=== PATIENT | female | born 1985 | race Caucasian/White ===

== ENCOUNTER 2022-10-23 16:32 | Emergency (ER) | payer OTHER ==
[~2022-10-23] VITALS: Ht 165.1 cm; Wt 74.3 kg
[2022-10-23] MEDS ORDERED: NS 1,000 ML IV ONE (18:25)
[2022-10-23] MEDS ORDERED: ONDANSETRON 4MG 2ML VIAL IV ONE (18:25)
[2022-10-23] MEDS: HYDROMORPHONE HCL 0.5 MG/ 0.5 ML SYRINGE IV PRN ×2 (19:08→20:24)
[2022-10-23 19:22] LABS: BASO % 0.4 % (0.0-1.0); EOS # 0.1 10^3/uL (0.0-0.5); EOS % 1.4 % (0.0-3.0); HEMATOCRIT 34.7 % (36.0-47.0); HEMOGLOBIN 10.7 g/dl (12.0-15.5); LYMPH # 2.1 10^3/uL (1.5-5.0); LYMPH % 20.6 % (24.0-44.0); MEAN CORPUSCULAR HEMOGLOBIN 27.4 pg (27.0-33.0); MEAN CORPUSCULAR HGB CONC 30.8 g/dl (32.0-36.5); MEAN CORPUSCULAR VOLUME 88.7 fl (80.0-96.0); MONO # 0.7 10^3/uL (0.0-0.8); MONO % 7.1 % (2.0-8.0); NEUTROPHILS % 70.2 % (36.0-66.0); PLATELET COUNT, AUTOMATED 356 10^3/uL (150-450); RED BLOOD COUNT 3.91 10^6/uL (4.00-5.40)
[2022-10-23] MEDS ORDERED: ISOVUE-370 76% 100ML VIAL As Ordered ONE (19:25)
[2022-10-23 19:34] LABS: INR 1.06; PARTIAL THROMBOPLASTIN TIME 28.2 SECONDS (24.8-34.2)
[2022-10-23 19:39] LABS: LIPASE 27 U/L (12-53)
[2022-10-23 19:41] LABS: ALBUMIN 3.1 G/DL (3.2-5.2); ALKALINE PHOSPHATASE 68 U/L (46-116); ALT/SGPT < 9 U/L (7.0-40); AST/SGOT 18 U/L (<34); BILIRUBIN,DIRECT < 0.1 MG/DL (<0.4); BILIRUBIN,TOTAL 0.4 MG/DL (0.3-1.2); TOTAL PROTEIN 8.2 G/DL (5.7-8.2)
[2022-10-23] MEDS ORDERED: HYDROMORPHONE HCL 0.5 MG/ 0.5 ML SYRINGE IV ONE (21:45)
[2022-10-23] MEDS ORDERED: KETOROLAC 30 MG/ML 1ML VIAL IV ONE (23:45)
[2022-10-24 00:25] LABS: RSV AMPLIFICATION NEGATIVE (NEGATIVE)
[2022-10-24 00:43] VITALS: BP 125/66
== END 2022-10-24 00:44 | disposition short-term general hospital (02) ==
LOC: M ED 16:32
DX: I88.0 Nonspecific mesenteric lymphadenitis (principal); M54.50 Low back pain, unspecified; F17.200 Nicotine dependence, unspecified, uncomplicated; Z88.1 Allergy status to other antibiotic agents
CPT/HCPCS: 36415; 74177; 80047; 80076; 81001; 83605; 83690; 84702; 85025; 85610; 85730; 87086; 87631; 93041; 96361; 96374; 96375; 99284; J1170; J1885; J2405; Q9967

== ENCOUNTER 2022-11-06 17:23 | Emergency (ER) | payer OTHER ==
[~2022-11-06] VITALS: Ht 162.6 cm; Wt 74.5 kg
[2022-11-06 17:24] VITALS: BP 170/79
[2022-11-06] MEDS ORDERED: ONDA4TAB6 (17:31)
[2022-11-06] MEDS ORDERED: HYDR2TAB2 (17:31)
[2022-11-06] MEDS ORDERED: LORA1TAB23 (17:31)
[2022-11-06] MEDS ORDERED: CELE1CAP7 (17:31)
== END 2022-11-06 20:32 | disposition left against medical advice (07) ==
LOC: M ED 17:23
DX: Z53.21 Procedure and treatment not carried out due to patient leaving prior to being seen by health care provider (principal)

== ENCOUNTER 2022-11-14 19:23 | Observation (INO) | payer OTHER ==
[~2022-11-14] VITALS: Ht 162.6 cm; Wt 72.1 kg
[~2022-11-14 19:23] MED LIST: CELE1CAP7; HYDR2TAB2; LORA1TAB23; ONDA4TAB6
[2022-11-14] MEDS ORDERED: NALO4SPR (20:11)
[2022-11-14] MEDS ORDERED: NS 1,000 ML IV ONE (21:40)
[2022-11-14] MEDS ORDERED: LORazepam 2 MG/ML 1ML VIAL IV STA (21:40)
[2022-11-14] MEDS ORDERED: ISOVUE-370 76% 100ML VIAL As Ordered ONE (21:54)
[2022-11-14] MEDS: HYDROMORPHONE HCL 0.5 MG/ 0.5 ML SYRINGE IV PRN ×2 (22:28→23:34)
[2022-11-14 22:33] LABS: BASO % 0.3 % (0.0-1.0); EOS # 0.1 10^3/uL (0.0-0.5); HEMATOCRIT 31.3 % (36.0-47.0); HEMOGLOBIN 9.6 g/dl (12.0-15.5); LYMPH # 2.1 10^3/uL (1.5-5.0); LYMPH % 17.4 % (24.0-44.0); MEAN CORPUSCULAR HEMOGLOBIN 27.2 pg (27.0-33.0); MEAN CORPUSCULAR HGB CONC 30.7 g/dl (32.0-36.5); MEAN CORPUSCULAR VOLUME 88.7 fl (80.0-96.0); MONO # 0.8 10^3/uL (0.0-0.8); MONO % 6.5 % (2.0-8.0); NEUTROPHILS # 9.1 10^3/uL (1.5-8.5); NEUTROPHILS % 74.3 % (36.0-66.0); PLATELET COUNT, AUTOMATED 362 10^3/uL (150-450); RED BLOOD COUNT 3.53 10^6/uL (4.00-5.40); WHITE BLOOD COUNT 12.2 10^3/uL (4.0-10.0)
[2022-11-14 22:45] LABS: INR 1.02; PROTHROMBIN TIME 13.6 SECONDS (12.5-14.5)
[2022-11-14 22:46] LABS: PARTIAL THROMBOPLASTIN TIME 30.9 SECONDS (24.8-34.2)
[2022-11-14 22:57] LABS: LIPASE 23 U/L (12-53)
[2022-11-14 23:00] LABS: ALBUMIN 2.8 G/DL (3.2-5.2); ALKALINE PHOSPHATASE 70 U/L (46-116); ALT/SGPT < 9 U/L (7.0-40); AST/SGOT 14 U/L (<34); BILIRUBIN,DIRECT < 0.1 MG/DL (<0.4); BILIRUBIN,TOTAL 0.3 MG/DL (0.3-1.2); BLOOD UREA NITROGEN 16 MG/DL (9-23); CALCIUM LEVEL 8.9 MG/DL (8.5-10.1); CARBON DIOXIDE LEVEL 24 MMOL/L (20-31); CHLORIDE LEVEL 106 MMOL/L (98-107); CREATININE FOR GFR 0.66 MG/DL (0.55-1.30); GLOMERULAR FILTRATION RATE > 60.0 (>60); GLUCOSE, FASTING 102 MG/DL (60-100); POTASSIUM SERUM 4.1 MMOL/L (3.5-5.1); SODIUM LEVEL 141 MMOL/L (136-145); TOTAL PROTEIN 7.4 G/DL (5.7-8.2)
[2022-11-14] MEDS ORDERED: NICOTINE 21MG/24HR 1 EA TRANSDERMAL TD ONE (23:05)
[2022-11-15] MEDS ORDERED: ONDANSETRON 4MG 2ML VIAL IV ONE (01:50)
[2022-11-15] MEDS ORDERED: HYDROMORPHONE HCL 0.5 MG/ 0.5 ML SYRINGE IV ONE ×2 (02:05→21:55)
[2022-11-15] MEDS ORDERED: ACETAMINOPHEN TAB 650MG DOSE (2X325MG) PO PRN (02:35)
[2022-11-15] MEDS ORDERED: HYDROMORPHONE HCL 0.5 MG/ 0.5 ML SYRINGE IV PRN ×3 (02:50→08:10)
[2022-11-15] MEDS ORDERED: NALOXONE INJ 0.4MG/1ML VIAL IV PRN (02:55)
[2022-11-15] MEDS ORDERED: CELE100C PO (03:53)
[2022-11-15] MEDS ORDERED: ONDA4TAB6 PO (03:53)
[2022-11-15] MEDS ORDERED: ATIV1TAB7 PO (03:53)
[2022-11-15] MEDS ORDERED: DILA2TAB6 PO (03:53)
[2022-11-15] MEDS ORDERED: HOME MED LIST COMPLETE! XX SCH (03:55)
[2022-11-15] MEDS: ONDANSETRON 4MG 2ML VIAL IV PRN ×3 (07:50→22:17)
[2022-11-15 08:00] VITALS: BP 158/89
[2022-11-15] MEDS ORDERED: LORazepam 2 MG/ML 1ML VIAL IM STA (08:10)
[2022-11-15] MEDS: DOCUSATE SODIUM 100MG CAPSULE PO SCH ×2 (09:42→19:44)
[2022-11-15] MEDS: ENOXAPARIN 40MG/0.4ML SYRINGE (J1650 PER 10MG) SC SCH (09:42)
[2022-11-15 12:00] VITALS: BP 127/69
[2022-11-15] MEDS ORDERED: PROHANCE 279.3MG/ML 15ML VIAL As Ordered ONE (13:56)
[2022-11-15] MEDS: CYCLOBENZAPRINE 5MG TABLET PO SCH ×2 (15:36→22:18)
[2022-11-15] MEDS: HYDROMORPHONE HCL 0.5 MG/ 0.5 ML SYRINGE IV PRN ×2 (15:36→19:46)
[2022-11-15 17:16] VITALS: BP 122/76
[2022-11-15 18:00] VITALS: BP 105/64
[2022-11-15] MEDS: CelecoXIB (CeleBREX) 100 MG CAP PO SCH (19:44)
[2022-11-15 21:09] VITALS: BP 136/79
[2022-11-15] MEDS ORDERED: LIDOCAINE 5% (LIDODERM) PATCH TD SCH (21:55)
[2022-11-15] MEDS: oxyCODONE 5MG TAB PO PRN (22:19)
[2022-11-16 02:00] VITALS: BP 127/77
[2022-11-16] MEDS: HYDROMORPHONE HCL 0.5 MG/ 0.5 ML SYRINGE IV PRN ×3 (04:15→12:40)
[2022-11-16] MEDS: ONDANSETRON 4MG 2ML VIAL IV PRN ×2 (04:26→10:33)
[2022-11-16] MEDS: oxyCODONE 5MG TAB PO PRN ×2 (05:51→10:16)
[2022-11-16] MEDS: CYCLOBENZAPRINE 5MG TABLET PO SCH (05:51)
[2022-11-16 06:00] VITALS: BP 121/80
[2022-11-16 06:06] LABS: HEMATOCRIT 29.3 % (36.0-47.0); HEMOGLOBIN 8.6 g/dl (12.0-15.5); MEAN CORPUSCULAR HEMOGLOBIN 26.8 pg (27.0-33.0); MEAN CORPUSCULAR HGB CONC 29.4 g/dl (32.0-36.5); MEAN CORPUSCULAR VOLUME 91.3 fl (80.0-96.0); PLATELET COUNT, AUTOMATED 300 10^3/uL (150-450); RED BLOOD COUNT 3.21 10^6/uL (4.00-5.40); WHITE BLOOD COUNT 8.4 10^3/uL (4.0-10.0)
[2022-11-16 06:22] LABS: BLOOD UREA NITROGEN 12 MG/DL (9-23); CALCIUM LEVEL 8.6 MG/DL (8.5-10.1); CARBON DIOXIDE LEVEL 26 MMOL/L (20-31); CHLORIDE LEVEL 104 MMOL/L (98-107); CREATININE FOR GFR 0.66 MG/DL (0.55-1.30); GLOMERULAR FILTRATION RATE > 60.0 (>60); GLUCOSE, FASTING 87 MG/DL (60-100); POTASSIUM SERUM 4.1 MMOL/L (3.5-5.1); SODIUM LEVEL 138 MMOL/L (136-145)
[2022-11-16] MEDS: DOCUSATE SODIUM 100MG CAPSULE PO SCH (08:42)
[2022-11-16] MEDS: CelecoXIB (CeleBREX) 100 MG CAP PO SCH (08:42)
[2022-11-16] MEDS: ENOXAPARIN 40MG/0.4ML SYRINGE (J1650 PER 10MG) SC SCH (08:44)
[2022-11-16] MEDS ORDERED: DILA4TAB13 PO (09:53)
[2022-11-16] MEDS ORDERED: NARC1SPR NARES (09:53)
[2022-11-16] MEDS ORDERED: LIDO5TD TD (10:23)
[2022-11-19] MEDS ORDERED: ACET-897 PO (09:18)
[2022-11-19] MEDS ORDERED: FENT12DI8 TOP (10:48)
[2022-11-19] MEDS ORDERED: DEXA2TA PO (10:48)
[2022-11-19] MEDS ORDERED: SENN-186 PO (10:48)
[2022-11-19] MEDS ORDERED: DILA4TAB13 PO (10:48)
== END 2022-11-16 13:49 | disposition home or self-care (01) ==
LOC: M ED 19:23 → M ED INP 11-15 02:32 → INTOOBSV 11-15 02:32 → ENRESERV 11-15 14:26 → M MSPAV 11-15 17:12
PROVIDERS: ADMIT Internal Medicine; ATTEND Internal Medicine
DX: G89.3 Neoplasm related pain (acute) (chronic) (principal); C82.90 Follicular lymphoma, unspecified, unspecified site; M54.50 Low back pain, unspecified; R11.2 Nausea with vomiting, unspecified; F41.9 Anxiety disorder, unspecified; Z79.899 Other long term (current) drug therapy; Z88.1 Allergy status to other antibiotic agents; Z88.8 Allergy status to other drugs, medicaments and biological substances
CPT/HCPCS: 36415; 71260; 72158; 74177; 80047; 80048; 80076; 83605; 83690; 84702; 85025; 85027; 85610; 85730; 87040; 87635; 96372; 96374; 96375; 96376; 99284; A9576; J1170; J1650; J2060; J2405; Q9967

== ENCOUNTER → 2022-11-19 | Outpatient (CLI) | payer OTHER ==
[~2022-11-19] VITALS: Ht 162.6 cm; Wt 73.8 kg
[~2022-11-19] MED LIST changes: +ACET-897 PO; +ATIV1TAB7 PO; +CELE100C PO; +CIPR-249 PO; +DEXA2TA PO; +DILA2TAB6 PO; +DILA4TAB13 PO; +FENT12DI8 TOP; +LIDO1PAD TOP; +LIDO5TD TD; +METO1TAB7 PO; +METR-265 PO; +MORP30TASA PO; +NALO4SPR; +NARC1SPR NARES; +ONDA4TAB6 PO; +RISATAB3 PO; +SENN-186 PO
[2022-11-19 09:11] VITALS: BP 122/87
== END ==
LOC: M PAL 08:54
PROVIDERS: ATTEND Nurse Practitioner Adult Health
DX: C82.90 Follicular lymphoma, unspecified, unspecified site (principal); Z51.5 Encounter for palliative care; G89.3 Neoplasm related pain (acute) (chronic); K59.00 Constipation, unspecified; R53.83 Other fatigue; Z98.51 Tubal ligation status; Z80.0 Family history of malignant neoplasm of digestive organs; Z88.6 Allergy status to analgesic agent; Z79.899 Other long term (current) drug therapy

== ENCOUNTER → 2022-11-25 | Outpatient (CLI) | payer OTHER ==
[~2022-11-25] MED LIST changes: -CIPR-249 PO; -METO1TAB7 PO; -METR-265 PO; -MORP30TASA PO; -RISATAB3 PO
== END ==
LOC: M PLARAD 12:05
PROVIDERS: ATTEND Internal Medicine Hematology & Oncology
DX: C82.95 Follicular lymphoma, unspecified, lymph nodes of inguinal region and lower limb (principal)
CPT/HCPCS: 78815; A9552

== ENCOUNTER 2022-11-27 03:12 | Inpatient (IN) | payer OTHER ==
[~2022-11-27] VITALS: Ht 162.6 cm; Wt 74.1 kg
[~2022-11-27 03:12] MED LIST changes: -LIDO1PAD TOP
[2022-11-27] MEDS ORDERED: NS 1,000 ML IV ONE (04:35)
[2022-11-27] MEDS ORDERED: ONDANSETRON 4MG 2ML VIAL IV ONE (04:35)
[2022-11-27] MEDS ORDERED: HYDROMORPHONE HCL 0.5 MG/ 0.5 ML SYRINGE IV ONE (04:45)
[2022-11-27 04:50] LABS: BASO % 0.2 % (0.0-1.0); EOS # 0.1 10^3/uL (0.0-0.5); EOS % 0.3 % (0.0-3.0); HEMATOCRIT 34.8 % (36.0-47.0); HEMOGLOBIN 10.7 g/dl (12.0-15.5); LYMPH # 3.5 10^3/uL (1.5-5.0); LYMPH % 19.2 % (24.0-44.0); MEAN CORPUSCULAR HEMOGLOBIN 27.3 pg (27.0-33.0); MEAN CORPUSCULAR HGB CONC 30.7 g/dl (32.0-36.5); MEAN CORPUSCULAR VOLUME 88.8 fl (80.0-96.0); MONO # 0.9 10^3/uL (0.0-0.8); MONO % 4.9 % (2.0-8.0); NEUTROPHILS # 13.4 10^3/uL (1.5-8.5); NEUTROPHILS % 74.8 % (36.0-66.0); RED BLOOD COUNT 3.92 10^6/uL (4.00-5.40)
[2022-11-27 04:57] LABS: LIPASE 30 U/L (12-53)
[2022-11-27 04:59] LABS: ALBUMIN 3.6 G/DL (3.2-5.2); ALKALINE PHOSPHATASE 66 U/L (46-116); ALT/SGPT < 9 U/L (7.0-40); AST/SGOT 12 U/L (<34); BILIRUBIN,DIRECT < 0.1 MG/DL (<0.4); BILIRUBIN,TOTAL 0.3 MG/DL (0.3-1.2); BLOOD UREA NITROGEN 17 MG/DL (9-23); CALCIUM LEVEL 9.2 MG/DL (8.5-10.1); CARBON DIOXIDE LEVEL 26 MMOL/L (20-31); CHLORIDE LEVEL 101 MMOL/L (98-107); GLOMERULAR FILTRATION RATE > 60.0 (>60); GLUCOSE, FASTING 104 MG/DL (60-100); POTASSIUM SERUM 4.2 MMOL/L (3.5-5.1); SODIUM LEVEL 137 MMOL/L (136-145); TOTAL PROTEIN 7.9 G/DL (5.7-8.2)
[2022-11-27] MEDS ORDERED: ISOVUE-370 76% 100ML VIAL As Ordered ONE (05:12)
[2022-11-27 05:25] LABS: RSV AMPLIFICATION NEGATIVE (NEGATIVE)
[2022-11-27] MEDS ORDERED: HYDROMORPHONE HCL 0.5 MG/ 0.5 ML SYRINGE IV PRN (08:00)
[2022-11-27] MEDS ORDERED: PROMETHAZINE 25MG/ML 1ML VIAL IV ONE ×2 (08:20→14:10)
[2022-11-27] MEDS ORDERED: MOM 30ML SUSPENSION UDC PO PRN (08:50)
[2022-11-27] MEDS ORDERED: ANEXSIA, NORCO 7.5MG/325MG TABLET(HYDROCODONE/APAP) PO PRN ×2 (08:50)
[2022-11-27] MEDS ORDERED: MIRALAX *UNIT DOSE* 17GM PACKET PO PRN (08:50)
[2022-11-27] MEDS ORDERED: LIDO1PAD TOP (09:16)
[2022-11-27] MEDS ORDERED: HOME MED LIST COMPLETE! XX SCH (09:25)
[2022-11-27] MEDS: PANTOPRAZOLE 40MG TAB (PROTONIX) PO SCH ×2 (09:29→20:41)
[2022-11-27] MEDS: SENOKOT S TAB PO SCH ×2 (09:31→20:41)
[2022-11-27] MEDS: LACTOBACILLUS ACIDOPHILUS CAP (BACID) PO SCH ×2 (09:31→18:22)
[2022-11-27] MEDS ORDERED: diphenhydrAMINE 50MG/ML VIAL IV PRN (10:30)
[2022-11-27] MEDS ORDERED: NALOXONE INJ 0.4MG/1ML VIAL IV PRN (10:30)
[2022-11-27] MEDS ORDERED: NS 1,000 ML IV SCH (10:30)
[2022-11-27] MEDS ORDERED: EPIDURAL/PCA KEYS XX PRN (10:30)
[2022-11-27] MEDS ORDERED: MORPHINE 10 MG/ML 1ML VIAL IV ONE (10:30)
[2022-11-27 10:40] LABS: ERYTHROCYTE SEDIMENTATION RATE 84 mm/hr (0-20)
[2022-11-27 10:42] VITALS: BP 155/99
[2022-11-27] MEDS: CIPROFLOXACIN 400 MG in IV 1 EA IV SCH ×2 (11:08→22:32)
[2022-11-27] MEDS: SUCRALFATE SUSP 1GM/10ML UD PO SCH ×3 (11:35→20:41)
[2022-11-27] MEDS: ONDANSETRON 4MG 2ML VIAL IV PRN ×2 (11:37→20:36)
[2022-11-27] MEDS ORDERED: MORPHINE 1MG/ML IN 0.9% NACL 100ML IV BAG IV PRN (12:00)
[2022-11-27] MEDS: metroNIDAZOLE 500 MG in IV 1 EA IV SCH ×2 (12:29→18:22)
[2022-11-27] MEDS ORDERED: PROMETHAZINE 25MG/ML 1ML VIAL IV PRN (14:10)
[2022-11-27] MEDS: METOPROLOL TART 25 MG TABLET PO SCH ×2 (14:49→18:22)
[2022-11-27] MEDS ORDERED: cloNIDine 0.1MG TABLET PO PRN (15:55)
[2022-11-27 16:00] VITALS: BP 141/77
[2022-11-27] MEDS ORDERED: FENTANYL REMOVAL DOCUMENTATION MISC XX SCH (16:05)
[2022-11-27 19:59] VITALS: BP 128/68
[2022-11-28 00:34] VITALS: BP 128/80
[2022-11-28] MEDS: metroNIDAZOLE 500 MG in IV 1 EA IV SCH ×2 (02:47→11:37)
[2022-11-28] MEDS: ONDANSETRON 4MG 2ML VIAL IV PRN ×3 (02:53→20:50)
[2022-11-28 05:32] VITALS: BP 140/79
[2022-11-28] MEDS: METOPROLOL TART 25 MG TABLET PO SCH ×4 (06:24→17:58)
[2022-11-28 06:52] LABS: HEMATOCRIT 32.8 % (36.0-47.0); HEMOGLOBIN 9.9 g/dl (12.0-15.5); MEAN CORPUSCULAR HEMOGLOBIN 27.3 pg (27.0-33.0); MEAN CORPUSCULAR HGB CONC 30.2 g/dl (32.0-36.5); MEAN CORPUSCULAR VOLUME 90.4 fl (80.0-96.0); PLATELET COUNT, AUTOMATED 363 10^3/uL (150-450); RED BLOOD COUNT 3.63 10^6/uL (4.00-5.40); WHITE BLOOD COUNT 18.4 10^3/uL (4.0-10.0)
[2022-11-28 07:14] LABS: BLOOD UREA NITROGEN 14 MG/DL (9-23); CALCIUM LEVEL 8.7 MG/DL (8.5-10.1); CARBON DIOXIDE LEVEL 26 MMOL/L (20-31); CHLORIDE LEVEL 99 MMOL/L (98-107); CREATININE FOR GFR 0.52 MG/DL (0.55-1.30); GLOMERULAR FILTRATION RATE > 60.0 (>60); GLUCOSE, FASTING 104 MG/DL (60-100); POTASSIUM SERUM 4.1 MMOL/L (3.5-5.1); SODIUM LEVEL 133 MMOL/L (136-145)
[2022-11-28] MEDS ORDERED: MORPHINE 2 MG/ML 1ML VIAL IV PRN (07:25)
[2022-11-28] MEDS ORDERED: PILL CUTTER 1 EACH XX PRN (07:45)
[2022-11-28] MEDS: SUCRALFATE SUSP 1GM/10ML UD PO SCH ×5 (08:59→20:42)
[2022-11-28] MEDS: LACTOBACILLUS ACIDOPHILUS CAP (BACID) PO SCH ×2 (09:00→17:56)
[2022-11-28] MEDS ORDERED: SCOPOLAMINE 1MG TRANSDERMAL PATCH TOP SCH (09:00)
[2022-11-28] MEDS: MIRALAX *UNIT DOSE* 17GM PACKET PO SCH ×2 (09:00→20:42)
[2022-11-28] MEDS: PANTOPRAZOLE 40MG TAB (PROTONIX) PO SCH ×2 (09:01→20:43)
[2022-11-28] MEDS: SENOKOT S TAB PO SCH ×2 (09:01→20:42)
[2022-11-28] MEDS: MORPHINE 15 MG SA TAB PO SCH ×2 (09:01→20:43)
[2022-11-28] MEDS: CIPROFLOXACIN 400 MG in IV 1 EA IV SCH (10:23)
[2022-11-28 14:00] VITALS: BP 129/89
[2022-11-28] MEDS: MORPHINE 30 MG TAB **MSIR PO PRN (16:04)
[2022-11-28] MEDS: CIPROFLOXACIN 500MG TABLET PO SCH (17:56)
[2022-11-28] MEDS: metroNIDAZOLE (FLAGYL) 500MG TABLET PO SCH (20:51)
[2022-11-29] MEDS: metroNIDAZOLE (FLAGYL) 500MG TABLET PO SCH ×2 (05:46→14:17)
[2022-11-29] MEDS: CIPROFLOXACIN 500MG TABLET PO SCH ×2 (05:46→17:10)
[2022-11-29] MEDS: ONDANSETRON 4MG 2ML VIAL IV PRN (05:46)
[2022-11-29] MEDS: METOPROLOL TART 25 MG TABLET PO SCH ×2 (06:00)
[2022-11-29 06:03] VITALS: BP 139/79
[2022-11-29 06:16] LABS: HEMATOCRIT 34.3 % (36.0-47.0); HEMOGLOBIN 10.5 g/dl (12.0-15.5); MEAN CORPUSCULAR HEMOGLOBIN 27.6 pg (27.0-33.0); MEAN CORPUSCULAR HGB CONC 30.6 g/dl (32.0-36.5); PLATELET COUNT, AUTOMATED 359 10^3/uL (150-450); RED BLOOD COUNT 3.81 10^6/uL (4.00-5.40); WHITE BLOOD COUNT 16.4 10^3/uL (4.0-10.0)
[2022-11-29] MEDS: MORPHINE 30 MG TAB **MSIR PO PRN (06:29)
[2022-11-29 06:40] LABS: BLOOD UREA NITROGEN 12 MG/DL (9-23); CALCIUM LEVEL 8.6 MG/DL (8.5-10.1); CARBON DIOXIDE LEVEL 26 MMOL/L (20-31); CHLORIDE LEVEL 97 MMOL/L (98-107); CREATININE FOR GFR 0.61 MG/DL (0.55-1.30); GLOMERULAR FILTRATION RATE > 60.0 (>60); GLUCOSE, FASTING 105 MG/DL (60-100); POTASSIUM SERUM 4.2 MMOL/L (3.5-5.1); SODIUM LEVEL 134 MMOL/L (136-145)
[2022-11-29] MEDS ORDERED: MORPHINE 10 MG/ML 1ML VIAL IV ONE (07:10)
[2022-11-29] MEDS: SUCRALFATE SUSP 1GM/10ML UD PO SCH ×3 (07:30→16:36)
[2022-11-29] MEDS ORDERED: ACETAMINOPHEN 1000MG 100ML IV BAG IV ONE (07:35)
[2022-11-29] MEDS ORDERED: PROMETHAZINE 25MG/ML 1ML VIAL IV ONE (07:35)
[2022-11-29 09:00] VITALS: BP 106/58
[2022-11-29] MEDS ORDERED: METOPROLOL SUCC (TopROL XL) 50MG **XL** TAB PO SCH (09:00)
[2022-11-29] MEDS ORDERED: MORPHINE 30 MG SA TAB PO SCH (09:00)
[2022-11-29] MEDS: SENOKOT S TAB PO SCH (10:04)
[2022-11-29] MEDS: MIRALAX *UNIT DOSE* 17GM PACKET PO SCH (10:04)
[2022-11-29] MEDS: PANTOPRAZOLE 40MG TAB (PROTONIX) PO SCH (10:05)
[2022-11-29] MEDS: LACTOBACILLUS ACIDOPHILUS CAP (BACID) PO SCH ×2 (10:06→17:10)
[2022-11-29 14:00] VITALS: BP 134/96
[2022-11-29] MEDS ORDERED: MORPHINE 30 MG TAB **MSIR PO ONE (15:45)
[2022-11-29] MEDS ORDERED: METR-265 PO (15:48)
[2022-11-29] MEDS ORDERED: MORP30TASA PO (15:48)
[2022-11-29] MEDS ORDERED: RISATAB3 PO (15:48)
[2022-11-29] MEDS ORDERED: METO1TAB7 PO (15:48)
[2022-11-29] MEDS ORDERED: CIPR-249 PO (15:48)
[2022-11-29] MEDS ORDERED: PERCOCET 5MG/325MG TAB PO ONE (19:55)
== END 2022-11-29 20:20 | disposition short-term general hospital (02) | DRG 861 ==
LOC: EDBD 03:12 → M ED 03:12 → M ED INP 05:47 → ENRESERV 09:00 → M MS5PR 10:30
PROVIDERS: ADMIT General Practice; ATTEND General Practice
DX: G89.3 Neoplasm related pain (acute) (chronic) (principal); K85.90 Acute pancreatitis without necrosis or infection, unspecified; C78.89 Secondary malignant neoplasm of other digestive organs; C79.51 Secondary malignant neoplasm of bone; C82.90 Follicular lymphoma, unspecified, unspecified site; I10 Essential (primary) hypertension; I16.0 Hypertensive urgency; K52.9 Noninfective gastroenteritis and colitis, unspecified; M54.9 Dorsalgia, unspecified; R10.9 Unspecified abdominal pain; Z79.891 Long term (current) use of opiate analgesic; Z88.8 Allergy status to other drugs, medicaments and biological substances; Z79.899 Other long term (current) drug therapy; N83.201 Unspecified ovarian cyst, right side

== ENCOUNTER → 2022-12-05 | Outpatient (CLI) | payer OTHER ==
[~2022-12-05] MED LIST changes: +CIPR-249 PO; +LIDO1PAD TOP; +METO1TAB7 PO; +METR-265 PO; +MORP30TASA PO; +RISATAB3 PO
== END ==
LOC: M ONCR 09:12
PROVIDERS: ATTEND General Practice
DX: C82.03 Follicular lymphoma grade I, intra-abdominal lymph nodes (principal); Z71.2 Person consulting for explanation of examination or test findings; Z79.891 Long term (current) use of opiate analgesic; Z79.899 Other long term (current) drug therapy; Z80.0 Family history of malignant neoplasm of digestive organs; Z80.6 Family history of leukemia; Z82.69 Family history of other diseases of the musculoskeletal system and connective tissue; Z88.1 Allergy status to other antibiotic agents; Z92.21 Personal history of antineoplastic chemotherapy; Z98.51 Tubal ligation status

== ENCOUNTER → 2022-12-10 | Outpatient (CLI) | payer OTHER ==
[~2022-12-10] VITALS: Ht 162.6 cm; Wt 70.6 kg
[~2022-12-10] MED LIST changes: +ATIV1TAB10 PO; +ELIQ5TAB PO; +MIRA3350 PO
[2022-12-10 09:51] VITALS: BP 123/80; TEMP 96.6; O2SAT 100
== END ==
LOC: M PAL 09:01
PROVIDERS: ATTEND Nurse Practitioner Adult Health
DX: C82.90 Follicular lymphoma, unspecified, unspecified site (principal); Z51.5 Encounter for palliative care; Z92.21 Personal history of antineoplastic chemotherapy; G89.3 Neoplasm related pain (acute) (chronic); I82.A11 Acute embolism and thrombosis of right axillary vein; I82.611 Acute embolism and thrombosis of superficial veins of right upper extremity; I82.B11 Acute embolism and thrombosis of right subclavian vein; K59.00 Constipation, unspecified; R53.83 Other fatigue; Z79.899 Other long term (current) drug therapy; Z79.891 Long term (current) use of opiate analgesic; Z88.8 Allergy status to other drugs, medicaments and biological substances; Z80.0 Family history of malignant neoplasm of digestive organs; Z80.6 Family history of leukemia

== ENCOUNTER → 2022-12-10 | Outpatient (CLI) | payer OTHER | LOC: M RAD 10:44 | PROVIDERS: ATTEND Nurse Practitioner Adult Health | DX: I82.611 Acute embolism and thrombosis of superficial veins of right upper extremity (principal) ==

== ENCOUNTER → 2022-12-16 | Outpatient (CLI) | payer OTHER ==
[~2022-12-16] MED LIST changes: +LIDOCAINE 1% MDV 20ML VIAL As Ordered ONE; +MIDAZOLAM INJ 2MG/2ML VIAL As Ordered ONE; +NS 1,000 ML IV SCH; +VANCOMYCIN 1000MG/20ML VIAL As Ordered ONE; +VANCOMYCIN HCL 1,000 MG, VIAL MATE ADAPTER 1 EACH in NS 250 ML IV ONE; +ceFAZolin 2 GM/D5W 50 ML IV BAG As Ordered ONE; +diphenhydrAMINE 50MG/ML VIAL As Ordered ONE; +fentaNYL 100 MCG/2 ML INJECTION As Ordered ONE
[2022-12-16 10:20] VITALS: TEMP 96.5
[2022-12-16 13:00] VITALS: BP 111/69
[2022-12-16 13:30] VITALS: O2SAT 99
== END ==
LOC: M IRPRO 10:09
PROVIDERS: ATTEND Internal Medicine Hematology & Oncology
DX: C82.90 Follicular lymphoma, unspecified, unspecified site (principal)
CPT/HCPCS: 36561; 99152; 99153; C1769; C1788; C1894; J1200; J2250; J3010

== ENCOUNTER → 2022-12-31 | Outpatient (POV) | payer OTHER ==
[~2022-12-31] VITALS: Ht 162.6 cm; Wt 70.0 kg
[~2022-12-31] MED LIST changes: +LIDO1CRE42 TOP; -LIDOCAINE 1% MDV 20ML VIAL As Ordered ONE; -MIDAZOLAM INJ 2MG/2ML VIAL As Ordered ONE; -NS 1,000 ML IV SCH; +PRED50TA PO; -VANCOMYCIN 1000MG/20ML VIAL As Ordered ONE; -VANCOMYCIN HCL 1,000 MG, VIAL MATE ADAPTER 1 EACH in NS 250 ML IV ONE; -ceFAZolin 2 GM/D5W 50 ML IV BAG As Ordered ONE; -diphenhydrAMINE 50MG/ML VIAL As Ordered ONE; -fentaNYL 100 MCG/2 ML INJECTION As Ordered ONE
[2022-12-31 12:30] VITALS: BP 127/68; O2SAT 100
== END ==
LOC: M IRPOV 11:57
PROVIDERS: ATTEND Radiology Diagnostic Radiology
DX: Z45.2 Encounter for adjustment and management of vascular access device (principal); Z88.1 Allergy status to other antibiotic agents; Z88.6 Allergy status to analgesic agent

== ENCOUNTER → 2023-01-09 | Outpatient (CLI) | payer OTHER ==
[~2023-01-09] MED LIST changes: -LIDO1CRE42 TOP; +LIDO30CR18 TOP
== END ==
LOC: M PAL 07:59
PROVIDERS: ATTEND Nurse Practitioner Adult Health
DX: C82.90 Follicular lymphoma, unspecified, unspecified site (principal); G89.3 Neoplasm related pain (acute) (chronic); M54.50 Low back pain, unspecified; Z80.0 Family history of malignant neoplasm of digestive organs; R53.83 Other fatigue; Z51.5 Encounter for palliative care; Z88.8 Allergy status to other drugs, medicaments and biological substances; Z79.899 Other long term (current) drug therapy; Z79.891 Long term (current) use of opiate analgesic; Z79.01 Long term (current) use of anticoagulants

== ENCOUNTER → 2023-02-11 | Outpatient (CLI) | payer OTHER ==
[~2023-02-11] VITALS: Ht 162.6 cm; Wt 73.6 kg
[2023-02-11 08:47] VITALS: BP 117/69; TEMP 96.4; O2SAT 100
== END ==
LOC: M PAL 08:37
PROVIDERS: ATTEND Nurse Practitioner Adult Health
DX: C82.90 Follicular lymphoma, unspecified, unspecified site (principal); Z51.5 Encounter for palliative care; Z92.21 Personal history of antineoplastic chemotherapy; G89.3 Neoplasm related pain (acute) (chronic); Z79.891 Long term (current) use of opiate analgesic; G62.0 Drug-induced polyneuropathy; K59.00 Constipation, unspecified; R53.83 Other fatigue; I82.621 Acute embolism and thrombosis of deep veins of right upper extremity; Z79.01 Long term (current) use of anticoagulants; Z79.899 Other long term (current) drug therapy; Z88.8 Allergy status to other drugs, medicaments and biological substances

== ENCOUNTER → 2023-03-05 | Outpatient (CLI) | payer OTHER | LOC: M RAD 11:44 | PROVIDERS: ATTEND Nurse Practitioner | DX: C82.90 Follicular lymphoma, unspecified, unspecified site (principal) ==

== ENCOUNTER → 2023-04-10 | Outpatient (CLI) | payer OTHER ==
[~2023-04-10] MED LIST changes: -CELE1CAP7; +CELE1CAP8; +HYDR4TAB PO
== END ==
LOC: M PAL 08:53
PROVIDERS: ATTEND Nurse Practitioner Adult Health
DX: C82.90 Follicular lymphoma, unspecified, unspecified site (principal); G89.3 Neoplasm related pain (acute) (chronic); J00 Acute nasopharyngitis [common cold]; Z87.442 Personal history of urinary calculi; Z51.5 Encounter for palliative care; Z79.01 Long term (current) use of anticoagulants; Z79.891 Long term (current) use of opiate analgesic; Z79.899 Other long term (current) drug therapy; Z88.1 Allergy status to other antibiotic agents; Z88.6 Allergy status to analgesic agent

== ENCOUNTER → 2023-05-05 | Outpatient (CLI) | payer OTHER ==
[~2023-05-05] MED LIST changes: -CELE1CAP8; +CELE1CAP99
== END ==
LOC: M PLARAD 09:21
PROVIDERS: ATTEND Nurse Practitioner
DX: C82.20 Follicular lymphoma grade III, unspecified, unspecified site (principal)
CPT/HCPCS: 78815; A9552

== ENCOUNTER → 2023-09-15 | Outpatient (CLI) | payer MEDICAID, OTHER ==
[~2023-09-15] MED LIST changes: +DILA4TAB13
== END ==
LOC: M PLARAD 08:50
PROVIDERS: ATTEND Nurse Practitioner
DX: C82.91 Follicular lymphoma, unspecified, lymph nodes of head, face, and neck (principal)
CPT/HCPCS: 78815; A9552

== ENCOUNTER → 2023-09-24 | Outpatient (CLI) | payer OTHER ==
[~2023-09-24] VITALS: Ht 162.6 cm; Wt 89.2 kg
[~2023-09-24] MED LIST changes: +FENT1DIS14 TOP
[2023-09-24 11:30] VITALS: BP 161/103; O2SAT 97
== END ==
LOC: M PAL 11:21
PROVIDERS: ATTEND Nurse Practitioner Adult Health
DX: G89.3 Neoplasm related pain (acute) (chronic) (principal); C82.28 Follicular lymphoma grade III, unspecified, lymph nodes of multiple sites; M54.50 Low back pain, unspecified; R10.30 Lower abdominal pain, unspecified; K59.00 Constipation, unspecified; R53.83 Other fatigue; Z51.5 Encounter for palliative care; Z79.01 Long term (current) use of anticoagulants; Z79.891 Long term (current) use of opiate analgesic; Z79.899 Other long term (current) drug therapy; Z86.718 Personal history of other venous thrombosis and embolism; Z88.1 Allergy status to other antibiotic agents; Z88.2 Allergy status to sulfonamides; Z92.21 Personal history of antineoplastic chemotherapy

== ENCOUNTER 2023-10-14 01:04 | Observation (INO) | payer MEDICAID, OTHER, SELFPAY ==
[~2023-10-14] VITALS: Ht 162.6 cm; Wt 88.2 kg
[2023-10-14] MEDS ORDERED: FENTANYL REMOVAL DOCUMENTATION MISC XX SCH ×2 (02:15→10:25)
[2023-10-14] MEDS: HYDROMORPHONE HCL 0.5 MG/ 0.5 ML SYRINGE IV ONE ×2 (02:51→04:42)
[2023-10-14] MEDS: ONDANSETRON 4MG 2ML VIAL IV ONE (02:52)
[2023-10-14] MEDS: NS 1,000 ML IV ONE (02:52)
[2023-10-14 03:02] LABS: BASO % 0.5 % (0.0-1.0); EOS # 0.4 10^3/uL (0.0-0.5); EOS % 5.5 % (0.0-3.0); HEMATOCRIT 38.1 % (36.0-47.0); HEMOGLOBIN 13.2 g/dl (12.0-15.5); LYMPH # 2.1 10^3/uL (1.5-5.0); LYMPH % 27.3 % (24.0-44.0); MEAN CORPUSCULAR HEMOGLOBIN 32.9 pg (27.0-33.0); MEAN CORPUSCULAR HGB CONC 34.6 g/dl (32.0-36.5); MONO # 0.7 10^3/uL (0.0-0.8); MONO % 9.3 % (2.0-8.0); NEUTROPHILS # 4.2 10^3/uL (1.5-8.5); NEUTROPHILS % 56.3 % (36.0-66.0); PLATELET COUNT, AUTOMATED 269 10^3/uL (150-450); RED BLOOD COUNT 4.01 10^6/uL (4.00-5.40); WHITE BLOOD COUNT 7.5 10^3/uL (4.0-10.0)
[2023-10-14 03:21] LABS: ALBUMIN 3.5 G/DL (3.2-5.2); ALKALINE PHOSPHATASE 49 U/L (46-116); ALT/SGPT 9 U/L (7.0-40); AST/SGOT 22 U/L (<34); BILIRUBIN,TOTAL < 0.2 MG/DL (0.3-1.2); BLOOD UREA NITROGEN 18 MG/DL (9-23); CALCIUM LEVEL 8.9 MG/DL (8.5-10.1); CARBON DIOXIDE LEVEL 24 MMOL/L (20-31); CHLORIDE LEVEL 110 MMOL/L (98-107); CREATININE FOR GFR 0.58 MG/DL (0.55-1.30); GLOMERULAR FILTRATION RATE > 60.0 (>60); GLUCOSE, FASTING 113 MG/DL (60-100); MAGNESIUM LEVEL 1.9 MG/DL (1.8-2.4); POTASSIUM SERUM 4.2 MMOL/L (3.5-5.1); SODIUM LEVEL 142 MMOL/L (136-145); TOTAL PROTEIN 6.6 G/DL (5.7-8.2)
[2023-10-14] MEDS ORDERED: HYDROmorphone 4MG TABLET PO PRN (05:50)
[2023-10-14] MEDS ORDERED: HOME MED LIST COMPLETE! XX SCH (06:00)
[2023-10-14] MEDS: BISACODYL 5MG TAB PO SCH (08:11)
[2023-10-14] MEDS: MIRALAX *UNIT DOSE* 17GM PACKET PO SCH (08:11)
[2023-10-14] MEDS: APIXABAN 5 MG TAB (ELIQUIS) PO SCH (08:15)
[2023-10-14] MEDS: ACETAMINOPHEN 500 MG TAB PO PRN (09:16)
[2023-10-14] MEDS: HYDROmorphone HCL 2MG/ML 1ML VIAL IV PRN (09:17)
[2023-10-14] MEDS: LIDOCAINE 5% (LIDODERM) PATCH TOP PRN (09:18)
[2023-10-14] MEDS ORDERED: ISOVUE-370 76% 100ML VIAL As Ordered ONE (10:27)
[2023-10-14] MEDS: SENOKOT S TAB PO SCH (10:37)
[2023-10-14] MEDS: fentaNYL 25 MCG/HR PATCH TOP SCH (10:37)
[2023-10-14] MEDS: PANTOPRAZOLE 40MG VIAL IV SCH (10:45)
[2023-10-14] MEDS: MORPHINE 15 MG SA TAB PO SCH (11:58)
[2023-10-14] MEDS: ONDANSETRON 4MG 2ML VIAL IV PRN (18:27)
[2023-10-14 19:02] VITALS: BP 164/72; TEMP 97.9; O2SAT 97
[2023-10-14] MEDS ORDERED: MORPHINE 15 MG SA TAB PO SCH (21:00)
[2023-10-14 21:17] VITALS: BP 122/73; TEMP 97; O2SAT 97
[2023-10-15] MEDS: HYDROMORPHONE HCL 0.5 MG/ 0.5 ML SYRINGE IV PRN ×2 (00:13→02:49)
[2023-10-15] MEDS: clonazePAM 0.5 MG TAB PO PRN (01:30)
[2023-10-15 06:00] VITALS: BP 132/85; TEMP 98.1; O2SAT 97
[2023-10-15 07:45] LABS: BASO % 0.6 % (0.0-1.0); EOS # 0.3 10^3/uL (0.0-0.5); EOS % 6.1 % (0.0-3.0); HEMATOCRIT 38.6 % (36.0-47.0); HEMOGLOBIN 12.9 g/dl (12.0-15.5); LYMPH # 1.8 10^3/uL (1.5-5.0); LYMPH % 32.8 % (24.0-44.0); MEAN CORPUSCULAR HEMOGLOBIN 32.3 pg (27.0-33.0); MEAN CORPUSCULAR HGB CONC 33.4 g/dl (32.0-36.5); MEAN CORPUSCULAR VOLUME 96.7 fl (80.0-96.0); MONO # 0.6 10^3/uL (0.0-0.8); MONO % 10.1 % (2.0-8.0); NEUTROPHILS # 2.7 10^3/uL (1.5-8.5); NEUTROPHILS % 49.3 % (36.0-66.0); PLATELET COUNT, AUTOMATED 237 10^3/uL (150-450); RED BLOOD COUNT 3.99 10^6/uL (4.00-5.40); WHITE BLOOD COUNT 5.5 10^3/uL (4.0-10.0)
[2023-10-15 08:08] LABS: BLOOD UREA NITROGEN 14 MG/DL (9-23); CARBON DIOXIDE LEVEL 28 MMOL/L (20-31); CHLORIDE LEVEL 112 MMOL/L (98-107); CREATININE FOR GFR 0.63 MG/DL (0.55-1.30); GLOMERULAR FILTRATION RATE > 60.0 (>60); GLUCOSE, FASTING 97 MG/DL (60-100); MAGNESIUM LEVEL 2.1 MG/DL (1.8-2.4); SODIUM LEVEL 144 MMOL/L (136-145)
[2023-10-15 10:00] VITALS: BP 135/86; TEMP 97.9; O2SAT 98
[2023-10-15] MEDS: IBUPROFEN 400MG TAB PO ONE (10:18)
[2023-10-15] MEDS: MORPHINE 15 MG SA TAB PO ONE (10:19)
[2023-10-15] MEDS: ONDANSETRON 4MG 2ML VIAL IV SCH ×2 (13:40→17:43)
[2023-10-15 14:00] VITALS: BP 128/69; TEMP 97.7; O2SAT 98
[2023-10-15 18:00] VITALS: BP 128/70; TEMP 98.1; O2SAT 98
[2023-10-15 20:40] VITALS: BP 123/69; TEMP 98.1; O2SAT 95
[2023-10-15] MEDS: IBUPROFEN 400MG TAB PO SCH (21:14)
[2023-10-15] MEDS: MORPHINE 15 MG SA TAB PO SCH (21:21)
[2023-10-16] VITALS (8 sets, daily range): BP systolic 104–139; BP diastolic 51–98; TEMP 97.7–98.2; O2SAT 95–99
[2023-10-16 06:48] LABS: HEMOGLOBIN 12.6 g/dl (12.0-15.5); MEAN CORPUSCULAR HGB CONC 33.2 g/dl (32.0-36.5); MEAN CORPUSCULAR VOLUME 99.5 fl (80.0-96.0); PLATELET COUNT, AUTOMATED 232 10^3/uL (150-450); RED BLOOD COUNT 3.82 10^6/uL (4.00-5.40); WHITE BLOOD COUNT 5.5 10^3/uL (4.0-10.0)
[2023-10-16 07:09] LABS: BLOOD UREA NITROGEN 17 MG/DL (9-23); CALCIUM LEVEL 8.4 MG/DL (8.5-10.1); CARBON DIOXIDE LEVEL 25 MMOL/L (20-31); CHLORIDE LEVEL 109 MMOL/L (98-107); CREATININE FOR GFR 0.63 MG/DL (0.55-1.30); GLOMERULAR FILTRATION RATE > 60.0 (>60); GLUCOSE, FASTING 103 MG/DL (60-100); MAGNESIUM LEVEL 1.9 MG/DL (1.8-2.4); POTASSIUM SERUM 4.1 MMOL/L (3.5-5.1); SODIUM LEVEL 142 MMOL/L (136-145)
[2023-10-16 08:13] LABS: ATYPICAL LYMPH 7 % (0-5); EOSINOPHILS 4 % (0-3); LYMPHOCYTES 31 % (16-44); MONOCYTES 6 % (0-5); NEUTROPHILS 52 % (28-66); PLATELET ESTIMATE NORMAL (NORMAL)
[2023-10-16 08:14] LABS: ANISOCYTOSIS 1+; TEAR DROP CELLS 1+
[2023-10-16 08:15] LABS: HELMET CELLS 1+
[2023-10-16] MEDS: BISACODYL 10MG SUPP PR ONE (12:20)
[2023-10-16] MEDS: IBUPROFEN 600MG TAB PO SCH (13:02)
[2023-10-16] MEDS: HYDROmorphone 4MG TABLET PO PRN (13:03)
[2023-10-16] MEDS: SENNA 8.6 MG TAB (SENOKOT) PO PRN (16:41)
[2023-10-16] MEDS: MORPHINE 15 MG SA TAB PO SCH (16:42)
[2023-10-16] MEDS ORDERED: FLEET ENEMA PR PRN (18:20)
[2023-10-16] MEDS: FLEET ENEMA PR ONE (19:09)
[2023-10-16] MEDS: SENOKOT S TAB PO SCH (20:56)
[2023-10-16] MEDS: CYCLOBENZAPRINE 5MG TABLET PO PRN (22:35)
[2023-10-16] MEDS: ACETAMINOPHEN *IV* 1,000 MG in IV 1 EA IV ONE (22:35)
[2023-10-17 01:51] VITALS: BP_SYST 124; BP_SYST 130; BP_DIAS 62; TEMP 98.1; O2SAT 96; O2SAT 97
[2023-10-17 06:00] VITALS: BP 117/58; TEMP 97.9; O2SAT 93
[2023-10-17 07:32] LABS: BASO % 0.8 % (0.0-1.0); EOS # 0.4 10^3/uL (0.0-0.5); HEMATOCRIT 35.2 % (36.0-47.0); HEMOGLOBIN 11.8 g/dl (12.0-15.5); LYMPH # 1.6 10^3/uL (1.5-5.0); LYMPH % 32.4 % (24.0-44.0); MEAN CORPUSCULAR HEMOGLOBIN 32.6 pg (27.0-33.0); MEAN CORPUSCULAR HGB CONC 33.5 g/dl (32.0-36.5); MEAN CORPUSCULAR VOLUME 97.2 fl (80.0-96.0); MONO # 0.6 10^3/uL (0.0-0.8); MONO % 11.8 % (2.0-8.0); NEUTROPHILS # 2.4 10^3/uL (1.5-8.5); NEUTROPHILS % 47.4 % (36.0-66.0); PLATELET COUNT, AUTOMATED 218 10^3/uL (150-450); RED BLOOD COUNT 3.62 10^6/uL (4.00-5.40)
[2023-10-17 07:58] LABS: BLOOD UREA NITROGEN 18 MG/DL (9-23); CALCIUM LEVEL 8.6 MG/DL (8.5-10.1); CARBON DIOXIDE LEVEL 29 MMOL/L (20-31); CHLORIDE LEVEL 109 MMOL/L (98-107); CREATININE FOR GFR 0.67 MG/DL (0.55-1.30); GLOMERULAR FILTRATION RATE > 60.0 (>60); GLUCOSE, FASTING 97 MG/DL (60-100); MAGNESIUM LEVEL 1.8 MG/DL (1.8-2.4); POTASSIUM SERUM 4.1 MMOL/L (3.5-5.1); SODIUM LEVEL 143 MMOL/L (136-145)
[2023-10-17 09:53] VITALS: BP 115/57; TEMP 98.1; O2SAT 98
[2023-10-17] MEDS ORDERED: SENO8.6T5 PO (11:37)
[2023-10-17] MEDS ORDERED: CYCL5TAB PO ×2 (11:37→12:35)
[2023-10-17] MEDS ORDERED: BISA10SU27 PR (11:37)
[2023-10-17] MEDS ORDERED: MORP15TASA PO (11:37)
[2023-10-17] MEDS ORDERED: IBUP-1022 PO ×2 (11:37→12:35)
[2023-10-17] MEDS ORDERED: SENN1TAB85 PO (12:35)
[2023-10-17] MEDS ORDERED: MORP30TASA PO (12:35)
== END 2023-10-17 15:13 | disposition home or self-care (01) ==
LOC: M ED 01:04 → M ED INP 01:05 → M MSPAV 18:58
PROVIDERS: ADMIT Preventive Medicine Undersea and Hyperbaric Medicine; ATTEND Internal Medicine
DX: G89.3 Neoplasm related pain (acute) (chronic) (principal); C82.20 Follicular lymphoma grade III, unspecified, unspecified site; J45.909 Unspecified asthma, uncomplicated; I82.621 Acute embolism and thrombosis of deep veins of right upper extremity; F41.9 Anxiety disorder, unspecified; Z79.01 Long term (current) use of anticoagulants; Z79.891 Long term (current) use of opiate analgesic; Z79.899 Other long term (current) drug therapy; Z88.1 Allergy status to other antibiotic agents; Z88.8 Allergy status to other drugs, medicaments and biological substances; R10.9 Unspecified abdominal pain
CPT/HCPCS: 74021; 74177; 80048; 80053; 83605; 83735; 85025; 96374; 96375; 96376; 99285; C9113; J0131; J1170; J2405; Q9967

== ENCOUNTER 2023-10-29 18:27 | Observation (INO) | payer MEDICAID ==
[~2023-10-29] VITALS: Ht 162.6 cm; Wt 87.0 kg
[~2023-10-29 18:27] MED LIST changes: +BISA10SU27 PR; +CYCL5TAB PO; +IBUP-1022 PO; +MORP15TASA PO; -NALO4SPR; +NALO4SPR3; +SENN1TAB85 PO; +SENO8.6T5 PO
[2023-10-29] MEDS: EMLA CREAM 5GM TUBE (LIDOCAINE/PRILOCAINE) TOP ONE (19:36)
[2023-10-29] MEDS: ONDANSETRON 4MG 2ML VIAL IV ONE (19:36)
[2023-10-29] MEDS: NS 500 ML IV ONE (19:36)
[2023-10-29] MEDS: HYDROMORPHONE HCL 0.5 MG/ 0.5 ML SYRINGE IV PRN (19:37)
[2023-10-29 19:58] LABS: BASO % 0.5 % (0.0-1.0); EOS # 0.4 10^3/uL (0.0-0.5); EOS % 4.9 % (0.0-3.0); HEMATOCRIT 34.9 % (36.0-47.0); LYMPH # 1.8 10^3/uL (1.5-5.0); LYMPH % 22.3 % (24.0-44.0); MEAN CORPUSCULAR HEMOGLOBIN 32.8 pg (27.0-33.0); MEAN CORPUSCULAR HGB CONC 34.4 g/dl (32.0-36.5); MEAN CORPUSCULAR VOLUME 95.4 fl (80.0-96.0); MONO # 0.8 10^3/uL (0.0-0.8); MONO % 9.8 % (2.0-8.0); NEUTROPHILS # 4.8 10^3/uL (1.5-8.5); NEUTROPHILS % 61.5 % (36.0-66.0); PLATELET COUNT, AUTOMATED 263 10^3/uL (150-450); RED BLOOD COUNT 3.66 10^6/uL (4.00-5.40); WHITE BLOOD COUNT 7.8 10^3/uL (4.0-10.0)
[2023-10-29] MEDS: HYDROMORPHONE HCL 0.5 MG/ 0.5 ML SYRINGE IV ONE ×2 (20:02→21:48)
[2023-10-29 20:35] LABS: LIPASE 27 U/L (12-53)
[2023-10-29 20:38] LABS: ALBUMIN 3.6 G/DL (3.2-5.2); ALKALINE PHOSPHATASE 51 U/L (46-116); ALT/SGPT < 9 U/L (7.0-40); AST/SGOT 14 U/L (<34); BILIRUBIN,TOTAL 0.3 MG/DL (0.3-1.2); BLOOD UREA NITROGEN 17 MG/DL (9-23); CALCIUM LEVEL 8.6 MG/DL (8.5-10.1); CARBON DIOXIDE LEVEL 24 MMOL/L (20-31); CHLORIDE LEVEL 108 MMOL/L (98-107); CREATININE FOR GFR 0.52 MG/DL (0.55-1.30); GLOMERULAR FILTRATION RATE > 60.0 (>60); GLUCOSE, FASTING 100 MG/DL (60-100); POTASSIUM SERUM 3.7 MMOL/L (3.5-5.1); SODIUM LEVEL 141 MMOL/L (136-145); TOTAL PROTEIN 6.7 G/DL (5.7-8.2)
[2023-10-29] MEDS: NS 1,000 ML IV ONE (21:28)
[2023-10-29] MEDS: NICOTINE 21MG/24HR 1 EA TRANSDERMAL TD ONE (22:03)
[2023-10-29] MEDS ORDERED: BISA10SU27 PR (22:33)
[2023-10-29] MEDS ORDERED: ELIQ5TAB PO (22:33)
[2023-10-29] MEDS ORDERED: SENN-23 PO (22:33)
[2023-10-29] MEDS ORDERED: DILA4TAB13 PO (22:33)
[2023-10-29] MEDS ORDERED: CYCL5TAB PO (22:33)
[2023-10-29] MEDS ORDERED: IBUP1TAB6 PO (22:38)
[2023-10-29] MEDS ORDERED: HOME MED LIST COMPLETE! XX SCH (22:40)
[2023-10-30] MEDS: HYDROMORPHONE HCL 0.5 MG/ 0.5 ML SYRINGE IV ONE
[2023-10-30 02:00] VITALS: BP 154/79; TEMP 97.4
[2023-10-30 02:15] VITALS: O2SAT 99
[2023-10-30] MEDS ORDERED: CYCLOBENZAPRINE 5MG TABLET PO PRN (04:15)
[2023-10-30] MEDS ORDERED: KETOROLAC 30 MG/ML 1ML VIAL IV PRN (04:15)
[2023-10-30] MEDS ORDERED: ALBUTEROL 90 MCG/ACT 8GM HFA INHALER INH PRN (04:15)
[2023-10-30] MEDS ORDERED: ACETAMINOPHEN 500 MG TAB PO PRN (04:15)
[2023-10-30] MEDS ORDERED: ONDANSETRON 4MG ORAL DISINTEGRATING TAB PO PRN (04:15)
[2023-10-30] MEDS ORDERED: MORPHINE 30 MG SA TAB PO SCH (09:00)
[2023-10-30] MEDS ORDERED: APIXABAN 5 MG TAB (ELIQUIS) PO SCH (09:00)
[2023-10-30] MEDS ORDERED: BISACODYL 10MG SUPP PR SCH (09:00)
[2023-10-30] MEDS ORDERED: NICOTINE 7 MG/24 HR TRANSDERMAL TD SCH (09:00)
[2023-10-30] MEDS ORDERED: SENOKOT S TAB PO SCH (09:00)
[2023-11-04] MEDS ORDERED: OMEP10CASR PO (13:13)
[2023-11-04] MEDS ORDERED: SENN-23 PO (14:11)
[2023-11-04] MEDS ORDERED: GABA-1171 PO (14:11)
[2023-11-13] MEDS ORDERED: LIDO30CR18 TOP (09:50)
[2023-11-13] MEDS ORDERED: CYCL5TAB PO (09:50)
[2023-11-13] MEDS ORDERED: LIDO1PAD TOP (09:50)
[2023-11-13] MEDS ORDERED: DILA4TAB13 PO (09:50)
[2023-11-13] MEDS ORDERED: HYDR-4517 PO (12:21)
== END 2023-10-30 04:00 | disposition left against medical advice (07) ==
LOC: M ED 18:27 → EDBD 18:27 → M ED INP 23:52 → ENRESERV 10-30 01:57 → M MS5PR 10-30 02:46
PROVIDERS: ADMIT Internal Medicine; ATTEND Internal Medicine
DX: R10.9 Unspecified abdominal pain (principal); C85.90 Non-Hodgkin lymphoma, unspecified, unspecified site; R93.5 Abnormal findings on diagnostic imaging of other abdominal regions, including retroperitoneum; R59.0 Localized enlarged lymph nodes; J45.909 Unspecified asthma, uncomplicated; F41.9 Anxiety disorder, unspecified; Z86.718 Personal history of other venous thrombosis and embolism; F17.210 Nicotine dependence, cigarettes, uncomplicated; Z88.1 Allergy status to other antibiotic agents; Z88.5 Allergy status to narcotic agent; Z79.899 Other long term (current) drug therapy; Z79.01 Long term (current) use of anticoagulants; Z79.891 Long term (current) use of opiate analgesic; Z51.5 Encounter for palliative care
CPT/HCPCS: 74176; 80053; 83690; 85025; 96361; 96374; 96375; 96376; 99285; J1170; J2405

== ENCOUNTER → 2023-10-30 | Outpatient (CLI) | payer OTHER ==
[~2023-10-30] VITALS: Ht 162.6 cm; Wt 94.0 kg
[~2023-10-30] MED LIST changes: +IBUP1TAB6 PO; +NALO4SPR; -NALO4SPR3; +SENN-23 PO
[2023-10-30 08:36] VITALS: BP 159/106; O2SAT 99
== END ==
LOC: M PAL 08:00
PROVIDERS: ATTEND Nurse Practitioner Adult Health
DX: G89.3 Neoplasm related pain (acute) (chronic) (principal); C82.28 Follicular lymphoma grade III, unspecified, lymph nodes of multiple sites; K59.03 Drug induced constipation; R11.2 Nausea with vomiting, unspecified; M54.50 Low back pain, unspecified; R10.9 Unspecified abdominal pain; Z51.5 Encounter for palliative care; Z79.01 Long term (current) use of anticoagulants; Z79.891 Long term (current) use of opiate analgesic; Z79.899 Other long term (current) drug therapy; Z86.718 Personal history of other venous thrombosis and embolism; Z88.1 Allergy status to other antibiotic agents; Z88.6 Allergy status to analgesic agent; Z92.21 Personal history of antineoplastic chemotherapy

== ENCOUNTER → 2023-11-04 | Outpatient (CLI) | payer MEDICAID, OTHER ==
[~2023-11-04] VITALS: Ht 162.6 cm; Wt 85.1 kg
[~2023-11-04] MED LIST changes: +GABA-1171 PO; +OMEP10CASR PO
[2023-11-04 13:09] VITALS: BP 149/98; O2SAT 98
== END ==
LOC: M PAL 12:58
PROVIDERS: ATTEND Nurse Practitioner Adult Health
DX: G89.3 Neoplasm related pain (acute) (chronic) (principal); G62.9 Polyneuropathy, unspecified; C82.28 Follicular lymphoma grade III, unspecified, lymph nodes of multiple sites; G47.00 Insomnia, unspecified; K59.00 Constipation, unspecified; R11.2 Nausea with vomiting, unspecified; M54.50 Low back pain, unspecified; R10.9 Unspecified abdominal pain; Z51.5 Encounter for palliative care; Z79.01 Long term (current) use of anticoagulants; Z79.891 Long term (current) use of opiate analgesic; Z79.899 Other long term (current) drug therapy; Z86.718 Personal history of other venous thrombosis and embolism; Z88.1 Allergy status to other antibiotic agents; Z88.6 Allergy status to analgesic agent; Z92.21 Personal history of antineoplastic chemotherapy; Z98.51 Tubal ligation status

== ENCOUNTER 2023-11-08 12:24 | Emergency (ER) | payer MEDICAID, OTHER ==
[~2023-11-08] VITALS: Ht 162.6 cm; Wt 84.1 kg
[~2023-11-08 12:24] MED LIST changes: -NALO4SPR; +NALO4SPR3
[2023-11-08] MEDS: HYDROMORPHONE HCL 0.5 MG/ 0.5 ML SYRINGE IV PRN (13:33)
[2023-11-08 13:34] LABS: BASO # 0.1 10^3/uL (0.0-0.2); BASO % 0.8 % (0.0-1.0); EOS # 0.4 10^3/uL (0.0-0.5); EOS % 5.6 % (0.0-3.0); HEMATOCRIT 37.9 % (36.0-47.0); HEMOGLOBIN 13.3 g/dl (12.0-15.5); LYMPH # 1.7 10^3/uL (1.5-5.0); LYMPH % 23.3 % (24.0-44.0); MEAN CORPUSCULAR HEMOGLOBIN 33.1 pg (27.0-33.0); MEAN CORPUSCULAR HGB CONC 35.1 g/dl (32.0-36.5); MEAN CORPUSCULAR VOLUME 94.3 fl (80.0-96.0); MONO # 0.7 10^3/uL (0.0-0.8); MONO % 10.1 % (2.0-8.0); NEUTROPHILS # 4.3 10^3/uL (1.5-8.5); NEUTROPHILS % 58.7 % (36.0-66.0); PLATELET COUNT, AUTOMATED 297 10^3/uL (150-450); RED BLOOD COUNT 4.02 10^6/uL (4.00-5.40); WHITE BLOOD COUNT 7.3 10^3/uL (4.0-10.0)
[2023-11-08] MEDS: NS 1,000 ML IV SCH (13:34)
[2023-11-08] MEDS: ONDANSETRON 4MG 2ML VIAL IV ONE (13:34)
[2023-11-08 13:42] LABS: LIPASE 31 U/L (12-53)
[2023-11-08 13:43] LABS: CPK CREATINE PHOSPHOKINASE 55 U/L (34-145)
[2023-11-08 13:44] LABS: ALBUMIN 3.9 G/DL (3.2-5.2); ALKALINE PHOSPHATASE 57 U/L (46-116); ALT/SGPT < 9 U/L (7.0-40); AST/SGOT 16 U/L (<34); BILIRUBIN,DIRECT 0.1 MG/DL (<0.4); BILIRUBIN,TOTAL 0.4 MG/DL (0.3-1.2); BLOOD UREA NITROGEN 16 MG/DL (9-23); CALCIUM LEVEL 8.7 MG/DL (8.5-10.1); CARBON DIOXIDE LEVEL 25 MMOL/L (20-31); CHLORIDE LEVEL 107 MMOL/L (98-107); CK-MB VALUE MASS < 1.0 NG/ML (<3.6); GLOMERULAR FILTRATION RATE > 60.0 (>60); GLUCOSE, FASTING 105 MG/DL (60-100); MB/CK RELATIVE INDEX 1.81 (< OR =4); POTASSIUM SERUM 3.5 MMOL/L (3.5-5.1); SODIUM LEVEL 140 MMOL/L (136-145); TOTAL PROTEIN 7.2 G/DL (5.7-8.2)
[2023-11-08 13:45] LABS: FREE T4 1.22 NG/DL (0.89-1.76); THYROID STIMULATING HORMONE 0.587 uIU/ML (0.55-4.78)
[2023-11-08 13:47] LABS: INR 1.16; PARTIAL THROMBOPLASTIN TIME 28.1 SECONDS (24.8-34.2); PROTHROMBIN TIME 14.5 SECONDS (12.5-14.5)
[2023-11-08] MEDS ORDERED: ISOVUE-370 76% 100ML VIAL As Ordered ONE (13:54)
[2023-11-08 15:02] LABS: CK-MB VALUE MASS < 1.0 NG/ML (<3.6); CPK CREATINE PHOSPHOKINASE 56 U/L (34-145); MB/CK RELATIVE INDEX 1.78 (< OR =4)
[2023-11-08] MEDS ORDERED: ATIV1TAB10 PO (16:00)
[2023-11-08] MEDS ORDERED: HOME MED LIST COMPLETE! XX SCH (16:05)
[2023-11-08 16:50] VITALS: BP 119/66; TEMP 97.9; O2SAT 97
== END 2023-11-08 16:53 | disposition home or self-care (01) ==
LOC: M ED 12:24 → EDBD 12:24 → M ED 16:53
DX: C82.20 Follicular lymphoma grade III, unspecified, unspecified site (principal); M54.40 Lumbago with sciatica, unspecified side; M48.07 Spinal stenosis, lumbosacral region; M51.36 Other intervertebral disc degeneration, lumbar region; R19.09 Other intra-abdominal and pelvic swelling, mass and lump; M51.27 Other intervertebral disc displacement, lumbosacral region; I45.10 Unspecified right bundle-branch block; K21.9 Gastro-esophageal reflux disease without esophagitis; E66.9 Obesity, unspecified; I10 Essential (primary) hypertension; F41.9 Anxiety disorder, unspecified; Z87.442 Personal history of urinary calculi; Z86.718 Personal history of other venous thrombosis and embolism; Z79.01 Long term (current) use of anticoagulants; Z79.83 Long term (current) use of bisphosphonates; Z79.891 Long term (current) use of opiate analgesic; Z79.899 Other long term (current) drug therapy; Z88.1 Allergy status to other antibiotic agents; Z88.6 Allergy status to analgesic agent
CPT/HCPCS: 71275; 72128; 72131; 74177; 80048; 80076; 82550; 82553; 83690; 84439; 84443; 84484; 85025; 85610; 85730; 93005; 93041; 94760; 96361; 96374; 96375; 99285; J1170; J2405; Q9967

== ENCOUNTER → 2023-11-13 | Outpatient (CLI) | payer OTHER ==
[~2023-11-13] MED LIST changes: +HYDR-4517 PO; +PROM50TA4 PO
== END ==
LOC: M ONCR 10:09
PROVIDERS: ATTEND General Practice
DX: C82.03 Follicular lymphoma grade I, intra-abdominal lymph nodes (principal); R19.00 Intra-abdominal and pelvic swelling, mass and lump, unspecified site; Z71.2 Person consulting for explanation of examination or test findings; Z79.01 Long term (current) use of anticoagulants; Z79.891 Long term (current) use of opiate analgesic; Z79.899 Other long term (current) drug therapy; Z88.1 Allergy status to other antibiotic agents; Z92.21 Personal history of antineoplastic chemotherapy

== ENCOUNTER 2023-11-15 23:57 | Emergency (ER) | payer OTHER ==
[~2023-11-15] VITALS: Ht 162.6 cm; Wt 83.2 kg
[~2023-11-15 23:57] MED LIST changes: -PROM50TA4 PO
[2023-11-16] MEDS: NS 1,000 ML IV ONE (00:43)
[2023-11-16] MEDS: HYDROMORPHONE HCL 0.5 MG/ 0.5 ML SYRINGE IV PRN (00:43)
[2023-11-16 00:49] LABS: BASO # 0.1 10^3/uL (0.0-0.2); BASO % 0.7 % (0.0-1.0); EOS # 0.4 10^3/uL (0.0-0.5); EOS % 5.4 % (0.0-3.0); HEMATOCRIT 35.2 % (36.0-47.0); LYMPH # 1.5 10^3/uL (1.5-5.0); MEAN CORPUSCULAR HGB CONC 34.1 g/dl (32.0-36.5); MEAN CORPUSCULAR VOLUME 96.7 fl (80.0-96.0); MONO # 0.7 10^3/uL (0.0-0.8); MONO % 9.6 % (2.0-8.0); NEUTROPHILS # 4.2 10^3/uL (1.5-8.5); NEUTROPHILS % 60.8 % (36.0-66.0); PLATELET COUNT, AUTOMATED 258 10^3/uL (150-450); RED BLOOD COUNT 3.64 10^6/uL (4.00-5.40); WHITE BLOOD COUNT 6.9 10^3/uL (4.0-10.0)
[2023-11-16] MEDS: FENTANYL REMOVAL DOCUMENTATION MISC XX SCH (02:18)
[2023-11-16 02:22] LABS: LIPASE 22 U/L (12-53)
[2023-11-16 02:24] LABS: CPK CREATINE PHOSPHOKINASE 46 U/L (34-145)
[2023-11-16 02:25] LABS: ALBUMIN 3.4 G/DL (3.2-5.2); ALKALINE PHOSPHATASE 54 U/L (46-116); ALT/SGPT 10 U/L (7.0-40); AST/SGOT 15 U/L (<34); BILIRUBIN,DIRECT 0.1 MG/DL (<0.4); BILIRUBIN,TOTAL 0.4 MG/DL (0.3-1.2); BLOOD UREA NITROGEN 15 MG/DL (9-23); CALCIUM LEVEL 8.8 MG/DL (8.5-10.1); CARBON DIOXIDE LEVEL 26 MMOL/L (20-31); CHLORIDE LEVEL 108 MMOL/L (98-107); CK-MB VALUE MASS < 1.0 NG/ML (<3.6); CREATININE FOR GFR 0.55 MG/DL (0.55-1.30); GLOMERULAR FILTRATION RATE > 60.0 (>60); GLUCOSE, FASTING 111 MG/DL (60-100); MB/CK RELATIVE INDEX 2.17 (< OR =4); POTASSIUM SERUM 3.2 MMOL/L (3.5-5.1); SODIUM LEVEL 141 MMOL/L (136-145); TOTAL PROTEIN 6.5 G/DL (5.7-8.2)
[2023-11-16] MEDS ORDERED: ISOVUE-370 76% 100ML VIAL As Ordered ONE (02:58)
[2023-11-16] MEDS: HYDROmorphone 2 MG TAB PO ONE (03:33)
[2023-11-16] MEDS: MORPHINE 30 MG SA TAB PO ONE (03:35)
[2023-11-16] MEDS: PROMETHAZINE 25MG/ML 1ML VIAL IV ONE (04:43)
[2023-11-16] MEDS: CYCLOBENZAPRINE 5MG TABLET PO ONE (05:02)
[2023-11-16] MEDS: GABAPENTIN 300 MG CAP PO ONE (05:02)
[2023-11-16] MEDS ORDERED: PROM50TA4 PO (06:10)
[2023-11-16 06:28] VITALS: BP 143/86; TEMP 98.8; O2SAT 97
== END 2023-11-16 07:27 | disposition home or self-care (01) ==
LOC: M ED 23:57
DX: F11.23 Opioid dependence with withdrawal (principal); R11.10 Vomiting, unspecified; R00.0 Tachycardia, unspecified; J45.909 Unspecified asthma, uncomplicated; Z88.1 Allergy status to other antibiotic agents; Z88.5 Allergy status to narcotic agent; Z79.01 Long term (current) use of anticoagulants; Z79.83 Long term (current) use of bisphosphonates; Z79.899 Other long term (current) drug therapy
CPT/HCPCS: 74177; 80048; 80076; 82550; 82553; 83605; 83690; 84484; 85025; 87040; 93005; 93041; 96361; 96374; 96375; 96376; 99285; J1170; J2550; Q9967

== ENCOUNTER 2023-11-21 07:52 | Emergency (ER) | payer OTHER ==
[~2023-11-21 07:52] MED LIST changes: +PROM50TA4 PO
[2023-11-21] MEDS: HYDROMORPHONE HCL 0.5 MG/ 0.5 ML SYRINGE IV PRN (08:58)
[2023-11-21] MEDS: SODIUM CHLORIDE 0.9% INJ 10 ML SYR IV PRN (08:58)
[2023-11-21] MEDS: EMLA CREAM 5GM TUBE (LIDOCAINE/PRILOCAINE) TOP ONE (08:58)
[2023-11-21] MEDS: ONDANSETRON 4MG 2ML VIAL IV ONE (08:59)
[2023-11-21 09:19] LABS: BASO # 0.1 10^3/uL (0.0-0.2); BASO % 0.8 % (0.0-1.0); EOS # 0.4 10^3/uL (0.0-0.5); EOS % 6.6 % (0.0-3.0); HEMATOCRIT 35.6 % (36.0-47.0); HEMOGLOBIN 11.9 g/dl (12.0-15.5); LYMPH # 1.4 10^3/uL (1.5-5.0); MEAN CORPUSCULAR HEMOGLOBIN 32.4 pg (27.0-33.0); MEAN CORPUSCULAR HGB CONC 33.4 g/dl (32.0-36.5); MONO # 0.7 10^3/uL (0.0-0.8); MONO % 10.9 % (2.0-8.0); NEUTROPHILS # 3.9 10^3/uL (1.5-8.5); PLATELET COUNT, AUTOMATED 255 10^3/uL (150-450); RED BLOOD COUNT 3.67 10^6/uL (4.00-5.40); WHITE BLOOD COUNT 6.6 10^3/uL (4.0-10.0)
[2023-11-21 09:40] LABS: LIPASE 28 U/L (12-53)
[2023-11-21 09:43] LABS: ALBUMIN 3.3 G/DL (3.2-5.2); ALKALINE PHOSPHATASE 58 U/L (46-116); ALT/SGPT < 9 U/L (7.0-40); AST/SGOT 9 U/L (<34); BILIRUBIN,DIRECT 0.1 MG/DL (<0.4); BILIRUBIN,TOTAL 0.3 MG/DL (0.3-1.2); BLOOD UREA NITROGEN 17 MG/DL (9-23); CALCIUM LEVEL 8.9 MG/DL (8.5-10.1); CARBON DIOXIDE LEVEL 25 MMOL/L (20-31); CHLORIDE LEVEL 111 MMOL/L (98-107); GLOMERULAR FILTRATION RATE > 60.0 (>60); GLUCOSE, FASTING 111 MG/DL (60-100); POTASSIUM SERUM 3.7 MMOL/L (3.5-5.1); SODIUM LEVEL 143 MMOL/L (136-145); TOTAL PROTEIN 6.7 G/DL (5.7-8.2)
[2023-11-21] MEDS: HYDROmorphone 2 MG TAB PO ONE (11:22)
[2023-11-21 12:26] VITALS: BP 165/89; TEMP 97; O2SAT 96
[2023-11-21] MEDS ORDERED: PRED5PAK PO (13:28)
[2023-11-21] MEDS ORDERED: HYDR4TAB PO ×2 (15:14→15:18)
[2023-11-24] MEDS ORDERED: PRED5TA PO (15:47)
== END 2023-11-21 12:32 | disposition home or self-care (01) ==
LOC: M ED 07:52 → EDBD 07:52 → M ED 12:32
DX: R10.9 Unspecified abdominal pain (principal); C85.90 Non-Hodgkin lymphoma, unspecified, unspecified site; M54.50 Low back pain, unspecified; Z88.1 Allergy status to other antibiotic agents; Z88.5 Allergy status to narcotic agent; Z79.01 Long term (current) use of anticoagulants; Z79.1 Long term (current) use of non-steroidal anti-inflammatories (NSAID); Z79.891 Long term (current) use of opiate analgesic; Z79.899 Other long term (current) drug therapy
CPT/HCPCS: 80048; 80076; 83690; 85025; 96374; 96375; 96376; 99284; J1170; J2405

== ENCOUNTER 2023-12-02 16:01 | Emergency (ER) | payer OTHER ==
[~2023-12-02 16:01] MED LIST changes: +ONDA-282; +ONDA-282 PO; -ONDA4TAB6; -ONDA4TAB6 PO; +PRED5PAK PO; +PRED5TA PO
[2023-12-02] MEDS ORDERED: ONDANSETRON 4MG 2ML VIAL As Ordered ONE (16:16)
[2023-12-02 16:59] LABS: BASO # 0.1 10^3/uL (0.0-0.2); BASO % 0.7 % (0.0-1.0); EOS # 0.3 10^3/uL (0.0-0.5); EOS % 2.9 % (0.0-3.0); HEMATOCRIT 37.8 % (36.0-47.0); HEMOGLOBIN 12.7 g/dl (12.0-15.5); LYMPH # 1.8 10^3/uL (1.5-5.0); LYMPH % 19.8 % (24.0-44.0); MEAN CORPUSCULAR HEMOGLOBIN 32.7 pg (27.0-33.0); MEAN CORPUSCULAR HGB CONC 33.6 g/dl (32.0-36.5); MEAN CORPUSCULAR VOLUME 97.4 fl (80.0-96.0); MONO # 0.9 10^3/uL (0.0-0.8); MONO % 9.9 % (2.0-8.0); NEUTROPHILS # 5.8 10^3/uL (1.5-8.5); NEUTROPHILS % 64.6 % (36.0-66.0); PLATELET COUNT, AUTOMATED 291 10^3/uL (150-450); RED BLOOD COUNT 3.88 10^6/uL (4.00-5.40); WHITE BLOOD COUNT 8.9 10^3/uL (4.0-10.0)
[2023-12-02 17:06] LABS: ALBUMIN 3.6 G/DL (3.2-5.2); BILIRUBIN,DIRECT 0.1 MG/DL (<0.4); BILIRUBIN,TOTAL 0.4 MG/DL (0.3-1.2); TOTAL PROTEIN 6.9 G/DL (5.7-8.2)
[2023-12-02] MEDS: HYDROMORPHONE HCL 0.5 MG/ 0.5 ML SYRINGE IV PRN (17:26)
[2023-12-02] MEDS: NS 1,000 ML IV ONE (17:26)
[2023-12-02] MEDS: HYDROmorphone 2 MG TAB PO ONE (20:17)
[2023-12-02] MEDS ORDERED: ISOVUE-370 76% 100ML VIAL As Ordered ONE (20:25)
[2023-12-02 21:18] VITALS: BP 174/92; TEMP 98; O2SAT 98
[2023-12-09] MEDS ORDERED: ONDA-282 PO (11:01)
== END 2023-12-02 22:08 | disposition left against medical advice (07) ==
LOC: M ED 16:01 → EDBD 16:01 → M ED 22:08
DX: R10.9 Unspecified abdominal pain (principal); C82.90 Follicular lymphoma, unspecified, unspecified site; J45.909 Unspecified asthma, uncomplicated; F41.9 Anxiety disorder, unspecified; F32.A Depression, unspecified; Z87.442 Personal history of urinary calculi; Z92.3 Personal history of irradiation; Z79.01 Long term (current) use of anticoagulants; Z79.1 Long term (current) use of non-steroidal anti-inflammatories (NSAID); Z79.891 Long term (current) use of opiate analgesic; Z79.52 Long term (current) use of systemic steroids; Z79.899 Other long term (current) drug therapy; Z88.1 Allergy status to other antibiotic agents; Z88.5 Allergy status to narcotic agent; Z53.9 Procedure and treatment not carried out, unspecified reason
CPT/HCPCS: 74177; 80047; 80076; 81001; 83605; 83690; 85025; 96374; 96376; 99285; J1170; J2405; Q9967

== ENCOUNTER → 2023-12-05 | Outpatient (RCR) | payer OTHER ==
[~2023-12-05] MED LIST changes: -ONDA-282; -ONDA-282 PO; +ONDA4TAB6; +ONDA4TAB6 PO
== END ==
LOC: M ONCR 11-17 10:17
PROVIDERS: ATTEND General Practice
DX: Z51.0 Encounter for antineoplastic radiation therapy (principal); C82.03 Follicular lymphoma grade I, intra-abdominal lymph nodes

== ENCOUNTER → 2023-12-05 | Outpatient (CLI) | payer OTHER ==
[~2023-12-05] VITALS: Ht 162.6 cm; Wt 81.2 kg
[2023-12-05 08:49] VITALS: BP 145/94; O2SAT 99
== END ==
LOC: M PAL 08:25
PROVIDERS: ATTEND Nurse Practitioner Adult Health
DX: G89.3 Neoplasm related pain (acute) (chronic) (principal); G62.9 Polyneuropathy, unspecified; C82.28 Follicular lymphoma grade III, unspecified, lymph nodes of multiple sites; G47.00 Insomnia, unspecified; K59.00 Constipation, unspecified; R11.2 Nausea with vomiting, unspecified; Z51.5 Encounter for palliative care; Z79.01 Long term (current) use of anticoagulants; Z79.891 Long term (current) use of opiate analgesic; Z79.899 Other long term (current) drug therapy; Z86.718 Personal history of other venous thrombosis and embolism; Z88.1 Allergy status to other antibiotic agents; Z88.6 Allergy status to analgesic agent; Z92.21 Personal history of antineoplastic chemotherapy; Z98.51 Tubal ligation status

== ENCOUNTER 2023-12-17 10:01 | Outpatient (RCR) | payer OTHER ==
[~2023-12-17 10:01] MED LIST changes: +ONDA-282; +ONDA-282 PO; -ONDA4TAB6; -ONDA4TAB6 PO
[2023-12-17] MEDS ORDERED: LIDO30CR18 TOP (10:47)
== END 2024-01-04 ==
LOC: M ONCR 10:01
PROVIDERS: ATTEND General Practice
DX: Z51.0 Encounter for antineoplastic radiation therapy (principal); C82.03 Follicular lymphoma grade I, intra-abdominal lymph nodes

== ENCOUNTER 2024-02-01 12:29 | Inpatient (IN) | payer OTHER ==
[~2024-02-01] VITALS: Ht 162.6 cm; Wt 82.7 kg
[~2024-02-01 12:29] MED LIST changes: +ACYC1TAB PO; +FLUC200T4 PO; +LEVO1TAB39 PO; +PROC10TA5 PO
[2024-02-01] MEDS ORDERED: LevoFLOXacin IV 750 MG in IV 1 EA IV ONE (14:05)
[2024-02-01] MEDS ORDERED: VANCOMYCIN HCL 1,500 MG in NS 250 ML IV ONE (14:10)
[2024-02-01 14:28] LABS: HEMOGLOBIN 7.2 g/dl (12.0-15.5); LYMPH # 0.1 10^3/uL (1.5-5.0); LYMPH % 35.5 % (24.0-44.0); MEAN CORPUSCULAR HEMOGLOBIN 30.6 pg (27.0-33.0); MEAN CORPUSCULAR HGB CONC 35.1 g/dl (32.0-36.5); MEAN CORPUSCULAR VOLUME 87.2 fl (80.0-96.0); MONO # 0.2 10^3/uL (0.0-0.8); MONO % 61.3 % (2.0-8.0); RED BLOOD COUNT 2.35 10^6/uL (4.00-5.40)
[2024-02-01] MEDS: NS 2,360 ML in IV 1 EA IV ONE (14:35)
[2024-02-01] MEDS: ACETAMINOPHEN TAB 650MG DOSE (2X325MG) PO ONE (14:35)
[2024-02-01] MEDS: MEROPENEM INJ 1 GM in IV 1 EA IV ONE (14:36)
[2024-02-01 14:37] LABS: HEMATOCRIT 20.5 % (36.0-47.0); PLATELET COUNT, AUTOMATED 12 10^3/uL (150-450); WHITE BLOOD COUNT 0.3 10^3/uL (4.0-10.0)
[2024-02-01] MEDS: HYDROmorphone 2 MG TAB PO ONE (14:46)
[2024-02-01] MEDS: VANCOMYCIN HCL 750 MG, VIAL MATE ADAPTER 1 EACH in D5W 250 ML IV ONE ×2 (15:16→16:38)
[2024-02-01] MEDS: FILGRASTIM 300MCG 0.5ML SYRINGE **SC ADMINISTRATION ONLY SC ONE (15:19)
[2024-02-01 15:58] LABS: THYROID STIMULATING HORMONE 0.607 uIU/ML (0.55-4.78); THYROXINE (T4) 11.5 UG/DL (4.5-10.9)
[2024-02-01 16:12] LABS: ALKALINE PHOSPHATASE 60 U/L (46-116); ALT/SGPT 42 U/L (7.0-40); AST/SGOT 15 U/L (<34); BILIRUBIN,DIRECT 0.4 MG/DL (<0.4); BILIRUBIN,TOTAL 0.9 MG/DL (0.3-1.2); BLOOD UREA NITROGEN 14 MG/DL (9-23); CALCIUM LEVEL 8.3 MG/DL (8.5-10.1); CARBON DIOXIDE LEVEL 21 MMOL/L (20-31); CHLORIDE LEVEL 97 MMOL/L (98-107); CREATININE FOR GFR 0.73 MG/DL (0.55-1.30); GLOMERULAR FILTRATION RATE > 60.0 (>60); GLUCOSE, FASTING 110 MG/DL (60-100); LIPASE 17 U/L (12-53); POTASSIUM SERUM 3.2 MMOL/L (3.5-5.1); SODIUM LEVEL 129 MMOL/L (136-145); TOTAL PROTEIN 6.5 G/DL (5.7-8.2)
[2024-02-01 16:20] LABS: HCG, SERUM QUALITATIVE NEGATIVE (NEGATIVE)
[2024-02-01] MEDS ORDERED: PERCOCET 5MG/325MG TAB PO PRN ×2 (17:00)
[2024-02-01] MEDS: ACETAMINOPHEN 500 MG TAB PO ONE (17:00)
[2024-02-01] MEDS ORDERED: NALOXONE INJ 0.4MG/1ML VIAL IV PRN (17:00)
[2024-02-01] MEDS ORDERED: LORazepam 0.5 MG TAB PO PRN (17:00)
[2024-02-01] MEDS ORDERED: MORPHINE 2 MG/ML 1ML VIAL IV PRN (17:00)
[2024-02-01] MEDS: NS 1,000 ML IV ONE (17:00)
[2024-02-01] MEDS ORDERED: HOME MED LIST COMPLETE! XX SCH (17:20)
[2024-02-01] MEDS ORDERED: HYDROmorphone 4MG TABLET PO PRN (18:00)
[2024-02-01] MEDS: HYDROmorphone 2 MG TAB PO PRN (18:10)
[2024-02-01] MEDS ORDERED: ISOVUE-370 76% 100ML VIAL As Ordered ONE (18:12)
[2024-02-01] MEDS: GABAPENTIN 100 MG CAP PO SCH (21:30)
[2024-02-01] MEDS: ACYCLOVIR 200 MG CAPSULE PO SCH (21:30)
[2024-02-01 21:41] VITALS: BP 122/64; TEMP 98.3; O2SAT 97
[2024-02-01 22:00] VITALS: BP 119/62; TEMP 98.1; O2SAT 96
[2024-02-01 22:29] VITALS: BP 117/65; TEMP 97.4; O2SAT 99
[2024-02-01 22:45] VITALS: BP 118/74; TEMP 98.5; O2SAT 99
[2024-02-01 23:16] VITALS: BP 127/70; TEMP 98.9; O2SAT 99
[2024-02-02] VITALS (9 sets, daily range): BP systolic 109–149; BP diastolic 64–88; TEMP 97.7–99.6; O2SAT 95–99
[2024-02-02] MEDS: MEROPENEM INJ 1 GM in IV 1 EA IV SCH (04:33)
[2024-02-02] MEDS: VANCOMYCIN HCL 1,000 MG, VIAL MATE ADAPTER 1 EACH in D5W 250 ML IV SCH (04:42)
[2024-02-02 08:24] LABS: HEMOGLOBIN 7.1 g/dl (12.0-15.5); LYMPH # 0.2 10^3/uL (1.5-5.0); LYMPH % 30.8 % (24.0-44.0); MEAN CORPUSCULAR HGB CONC 35.1 g/dl (32.0-36.5); MEAN CORPUSCULAR VOLUME 88.2 fl (80.0-96.0); MONO # 0.3 10^3/uL (0.0-0.8); MONO % 50.8 % (2.0-8.0); NEUTROPHILS % 12.2 % (36.0-66.0); RED BLOOD COUNT 2.29 10^6/uL (4.00-5.40)
[2024-02-02 08:25] LABS: HEMATOCRIT 20.2 % (36.0-47.0)
[2024-02-02 08:26] LABS: NEUTROPHILS # 0.1 10^3/uL (1.5-8.5)
[2024-02-02 08:28] LABS: PLATELET COUNT, AUTOMATED 25 10^3/uL (150-450); WHITE BLOOD COUNT 0.7 10^3/uL (4.0-10.0)
[2024-02-02] MEDS ORDERED: LIDOCAINE 5% (LIDODERM) PATCH TD PRN (09:00)
[2024-02-02] MEDS: FLUCONAZOLE 100 MG TAB PO SCH (11:15)
[2024-02-02] MEDS: FILGRASTIM 300MCG 0.5ML SYRINGE **SC ADMINISTRATION ONLY SC SCH (11:15)
[2024-02-02] MEDS: diphenhydrAMINE 50MG CAP PO ONE (16:30)
[2024-02-02] MEDS: ACETAMINOPHEN 500 MG TAB PO ONE (16:31)
[2024-02-02] MEDS: CYCLOBENZAPRINE 5MG TABLET PO PRN (20:41)
[2024-02-02] MEDS: ONDANSETRON 4MG 2ML VIAL IV PRN (20:41)
[2024-02-02] MEDS: SENOKOT S TAB PO SCH (20:41)
[2024-02-02] MEDS: ACETAMINOPHEN TAB 650MG DOSE (2X325MG) PO PRN (20:42)
[2024-02-03] MEDS: SODIUM CHLORIDE 0.9% INJ 10 ML SYR IV PRN (03:57)
[2024-02-03 04:00] VITALS: BP 117/77; TEMP 97.7; O2SAT 98
[2024-02-03 06:19] LABS: HEMATOCRIT 23.4 % (36.0-47.0); HEMOGLOBIN 8.2 g/dl (12.0-15.5); MEAN CORPUSCULAR HEMOGLOBIN 30.8 pg (27.0-33.0); RED BLOOD COUNT 2.66 10^6/uL (4.00-5.40); WHITE BLOOD COUNT 1.6 10^3/uL (4.0-10.0)
[2024-02-03 06:37] LABS: PLATELET COUNT, AUTOMATED 14 10^3/uL (150-450)
[2024-02-03 07:09] LABS: BLOOD UREA NITROGEN 10 MG/DL (9-23); CARBON DIOXIDE LEVEL 28 MMOL/L (20-31); CHLORIDE LEVEL 106 MMOL/L (98-107); CREATININE FOR GFR 0.55 MG/DL (0.55-1.30); GLOMERULAR FILTRATION RATE > 60.0 (>60); GLUCOSE, FASTING 137 MG/DL (60-100); POTASSIUM SERUM 2.7 MMOL/L (3.5-5.1); SODIUM LEVEL 142 MMOL/L (136-145)
[2024-02-03 07:18] LABS: ATYPICAL LYMPH 9 % (0-5); BASOPHILS 1 % (0-1); LYMPHOCYTES 35 % (16-44); METAMYELOCYTES 2 % (0-0); MONOCYTES 21 % (0-5); NEUTROPHILS 31 % (28-66); PLATELET ESTIMATE MARKED DECREASE (NORMAL)
[2024-02-03] MEDS: APIXABAN 5 MG TAB (ELIQUIS) PO SCH (08:02)
[2024-02-03] MEDS: POTASSIUM CHLORIDE 10MEQ SR TABLET PO ONE (08:13)
[2024-02-03] MEDS: FLUCONAZOLE 100 MG TAB PO SCH (08:14)
[2024-02-03] MEDS: KCL 10MEQ/100ML SWI (KRUN) 10 MEQ in IV 1 EA IV SCH (08:31)
[2024-02-03] MEDS: FENTANYL REMOVAL DOCUMENTATION MISC XX SCH (09:00)
[2024-02-03] MEDS: LIDOCAINE 5% (LIDODERM) PATCH TD SCH (10:44)
[2024-02-03 12:00] VITALS: BP 154/94; TEMP 97.7; O2SAT 96
[2024-02-03] MEDS: MEROPENEM INJ 1 GM in IV 1 EA IV SCH (12:07)
[2024-02-03 15:20] LABS: HEMATOCRIT 24.8 % (36.0-47.0); HEMOGLOBIN 8.7 g/dl (12.0-15.5); MEAN CORPUSCULAR HEMOGLOBIN 30.9 pg (27.0-33.0); MEAN CORPUSCULAR HGB CONC 35.1 g/dl (32.0-36.5); MEAN CORPUSCULAR VOLUME 87.9 fl (80.0-96.0); RED BLOOD COUNT 2.82 10^6/uL (4.00-5.40); WHITE BLOOD COUNT 2.3 10^3/uL (4.0-10.0)
[2024-02-03 15:28] LABS: PLATELET COUNT, AUTOMATED 13 10^3/uL (150-450)
[2024-02-03 15:49] LABS: BLOOD UREA NITROGEN 11 MG/DL (9-23); CALCIUM LEVEL 8.3 MG/DL (8.5-10.1); CARBON DIOXIDE LEVEL 26 MMOL/L (20-31); CHLORIDE LEVEL 107 MMOL/L (98-107); CREATININE FOR GFR 0.64 MG/DL (0.55-1.30); GLOMERULAR FILTRATION RATE > 60.0 (>60); GLUCOSE, FASTING 96 MG/DL (60-100); MAGNESIUM LEVEL 1.5 MG/DL (1.8-2.4); SODIUM LEVEL 140 MMOL/L (136-145)
[2024-02-03 16:02] LABS: ATYPICAL LYMPH 1 % (0-5); LYMPHOCYTES 24 % (16-44); METAMYELOCYTES 3 % (0-0); MONOCYTES 18 % (0-5); MYELOCYTES 4 % (0-0); NEUTROPHILS 44 % (28-66); PLATELET ESTIMATE MARKED DECREASE (NORMAL); PROMYELOCYTES 2 % (0-0)
[2024-02-03] MEDS ORDERED: AMOX875T2 PO (16:58)
[2024-02-03] MEDS ORDERED: MAGO400T2 PO (17:02)
[2024-02-03] MEDS ORDERED: AUGMENTIN 875 MG TAB PO SCH (21:00)
== END 2024-02-03 19:00 | disposition home or self-care (01) | DRG 660 ==
LOC: M ED 12:29 → M ED INP 16:36 → M MS5PR 02-02 14:10
PROVIDERS: ADMIT General Practice; ATTEND Preventive Medicine Undersea and Hyperbaric Medicine
PROC: 30233N1 Transfusion of Nonautologous Red Blood Cells into Peripheral Vein, Percutaneous Approach (ICD-10-PCS; principal; 2024-02-01)
PROC: 30233R1 Transfusion of Nonautologous Platelets into Peripheral Vein, Percutaneous Approach (ICD-10-PCS; 2024-02-01)
DX: D61.810 Antineoplastic chemotherapy induced pancytopenia (principal); D69.6 Thrombocytopenia, unspecified; C82.95 Follicular lymphoma, unspecified, lymph nodes of inguinal region and lower limb; D70.1 Agranulocytosis secondary to cancer chemotherapy; D64.81 Anemia due to antineoplastic chemotherapy; E87.6 Hypokalemia; K04.7 Periapical abscess without sinus; Z92.21 Personal history of antineoplastic chemotherapy; Z92.3 Personal history of irradiation; Z88.8 Allergy status to other drugs, medicaments and biological substances; Z79.899 Other long term (current) drug therapy; Z87.442 Personal history of urinary calculi; Z86.718 Personal history of other venous thrombosis and embolism

== ENCOUNTER → 2024-02-10 | Outpatient (CLI) | payer OTHER ==
[~2024-02-10] VITALS: Ht 162.6 cm; Wt 81.4 kg
[~2024-02-10] MED LIST changes: +AMOX875T2 PO; +MAGO400T2 PO
[2024-02-10 12:59] VITALS: BP 148/92; O2SAT 99
== END ==
LOC: M PAL 12:46
PROVIDERS: ATTEND Nurse Practitioner Adult Health
DX: G89.3 Neoplasm related pain (acute) (chronic) (principal); M54.50 Low back pain, unspecified; G62.9 Polyneuropathy, unspecified; C82.28 Follicular lymphoma grade III, unspecified, lymph nodes of multiple sites; G47.00 Insomnia, unspecified; K59.03 Drug induced constipation; T40.2X5A Adverse effect of other opioids, initial encounter; R11.0 Nausea; K04.7 Periapical abscess without sinus; Z51.5 Encounter for palliative care; Z79.891 Long term (current) use of opiate analgesic; Z79.899 Other long term (current) drug therapy; Z86.718 Personal history of other venous thrombosis and embolism; Z87.442 Personal history of urinary calculi; Z88.1 Allergy status to other antibiotic agents; Z88.6 Allergy status to analgesic agent; Z92.21 Personal history of antineoplastic chemotherapy; Z92.3 Personal history of irradiation; Z98.51 Tubal ligation status

== ENCOUNTER → 2024-03-09 | Outpatient (CLI) | payer MEDICAID, OTHER | LOC: M PLARAD 13:25 | PROVIDERS: ATTEND Physician Assistant | DX: C83.30 Diffuse large B-cell lymphoma, unspecified site (principal) | CPT/HCPCS: 78815; A9552 ==

== ENCOUNTER → 2024-05-05 | Outpatient (CLI) | payer OTHER | LOC: M ONCR 10:28 | PROVIDERS: ATTEND General Practice | DX: C82.03 Follicular lymphoma grade I, intra-abdominal lymph nodes (principal); Z79.891 Long term (current) use of opiate analgesic; Z92.21 Personal history of antineoplastic chemotherapy; Z92.3 Personal history of irradiation; Z88.1 Allergy status to other antibiotic agents; Z88.6 Allergy status to analgesic agent ==

== ENCOUNTER → 2024-05-05 | Outpatient (CLI) | payer MEDICAID, OTHER ==
[~2024-05-05] VITALS: Ht 162.6 cm; Wt 88.4 kg
[~2024-05-05] MED LIST changes: -CYCL5TAB PO; +CYCL5TAB4 PO; +FLUC-1 PO; -FLUC200T4 PO; +NALO4SPR20; -NALO4SPR3
[2024-05-05 09:57] VITALS: BP 144/93; TEMP 97.2; O2SAT 98
== END ==
LOC: M PAL 09:11
PROVIDERS: ATTEND Nurse Practitioner Adult Health
DX: G89.3 Neoplasm related pain (acute) (chronic) (principal); G62.9 Polyneuropathy, unspecified; C82.28 Follicular lymphoma grade III, unspecified, lymph nodes of multiple sites; R03.0 Elevated blood-pressure reading, without diagnosis of hypertension; K59.00 Constipation, unspecified; G47.00 Insomnia, unspecified; R11.0 Nausea; Z51.5 Encounter for palliative care; Z79.01 Long term (current) use of anticoagulants; Z79.891 Long term (current) use of opiate analgesic; Z79.899 Other long term (current) drug therapy; Z82.69 Family history of other diseases of the musculoskeletal system and connective tissue; Z88.1 Allergy status to other antibiotic agents; Z92.21 Personal history of antineoplastic chemotherapy; Z92.3 Personal history of irradiation; Z86.718 Personal history of other venous thrombosis and embolism

== ENCOUNTER → 2024-10-06 | Outpatient (CLI) | payer OTHER ==
[~2024-10-06] VITALS: Ht 162.6 cm; Wt 95.4 kg
[2024-10-06 10:48] VITALS: BP 140/90; O2SAT 99
== END ==
LOC: M PAL 09:57
PROVIDERS: ATTEND Physician Assistant
DX: Z51.5 Encounter for palliative care (principal); C82.2 Follicular lymphoma grade III, unspecified; Z79.891 Long term (current) use of opiate analgesic; Z88.1 Allergy status to other antibiotic agents; Z88.8 Allergy status to other drugs, medicaments and biological substances; Z79.899 Other long term (current) drug therapy

== ENCOUNTER → 2024-10-26 | Outpatient (CLI) | payer OTHER | LOC: M PLARAD 08:44 | PROVIDERS: ATTEND General Practice | DX: C82.03 Follicular lymphoma grade I, intra-abdominal lymph nodes (principal) | CPT/HCPCS: 78815; A9552 ==

== ENCOUNTER → 2024-11-02 | Outpatient (CLI) | payer OTHER ==
[~2024-11-02] MED LIST changes: +MORP-138 PO; -MORP15TASA PO; -PRED50TA PO; +PRED50TA57 PO
== END ==
LOC: M ONCR 10:35
PROVIDERS: ATTEND General Practice
DX: C82.03 Follicular lymphoma grade I, intra-abdominal lymph nodes (principal); Z92.21 Personal history of antineoplastic chemotherapy; Z92.3 Personal history of irradiation; Z88.1 Allergy status to other antibiotic agents; Z79.01 Long term (current) use of anticoagulants; Z79.899 Other long term (current) drug therapy

== ENCOUNTER → 2025-02-07 | Outpatient (CLI) | payer OTHER ==
[~2025-02-07] VITALS: Ht 162.6 cm; Wt 98.3 kg
[~2025-02-07] MED LIST changes: +ACYC-438 PO; -ACYC1TAB PO; +DULO30CA9 PO; +HYDR2TAB2 PO; +SENN-225 PO; -SENO8.6T5 PO
[2025-02-07 10:24] VITALS: BP 130/82; O2SAT 98
== END ==
LOC: M PAL 09:57
PROVIDERS: ATTEND Physician Assistant
DX: Z51.5 Encounter for palliative care (principal); C82.2 Follicular lymphoma grade III, unspecified; Z79.891 Long term (current) use of opiate analgesic; Z88.8 Allergy status to other drugs, medicaments and biological substances; Z88.6 Allergy status to analgesic agent; Z79.899 Other long term (current) drug therapy

== ENCOUNTER → 2025-03-10 | Outpatient (CLI) | payer OTHER ==
[~2025-03-10] VITALS: Ht 162.6 cm; Wt 96.5 kg
[~2025-03-10] MED LIST changes: -IBUP-1022 PO; -IBUP1TAB6 PO; +IBUP600T42 PO; +SFHIBU600 PO
[2025-03-10 10:22] VITALS: BP 122/62; O2SAT 98
== END ==
LOC: M PAL 10:06
PROVIDERS: ATTEND Physician Assistant
DX: Z51.5 Encounter for palliative care (principal); C82.2 Follicular lymphoma grade III, unspecified; Z79.891 Long term (current) use of opiate analgesic; Z88.6 Allergy status to analgesic agent; Z88.8 Allergy status to other drugs, medicaments and biological substances; Z79.899 Other long term (current) drug therapy

== ENCOUNTER → 2025-04-25 | Outpatient (CLI) | payer OTHER | LOC: M PLARAD 10:06 | PROVIDERS: ATTEND General Practice | DX: C82.03 Follicular lymphoma grade I, intra-abdominal lymph nodes (principal) | CPT/HCPCS: 78815; A9552 ==

== ENCOUNTER → 2025-05-02 | Outpatient (CLI) | payer OTHER | LOC: M ONCR 09:42 | PROVIDERS: ATTEND General Practice | DX: C82.03 Follicular lymphoma grade I, intra-abdominal lymph nodes (principal); Z92.21 Personal history of antineoplastic chemotherapy; Z92.3 Personal history of irradiation; Z88.1 Allergy status to other antibiotic agents; Z79.01 Long term (current) use of anticoagulants; Z79.891 Long term (current) use of opiate analgesic; Z79.899 Other long term (current) drug therapy ==